=== PATIENT | female | born 1980 | race Caucasian/White ===

== ENCOUNTER 2019-07-08 10:32 | Outpatient (CLI) | payer OTHER, SELFPAY ==
--- NOTE | 2019-07-08 10:36 | MM_ITS ---
WS: [id number] BILATERAL DIGITAL SCREENING MAMMOGRAPHY WITH CAD CLINICAL INFORMATION: SCREENING HISTORY: Screening mammogram. Bilateral breast soreness COMPARISON: None. TECHNIQUE: Bilateral CC and MLO views. FINDINGS: Scattered fibroglandular densities bilaterally. No suspicious focal mass, asymmetry, calcifications, or architectural distortion. No evidence of malignancy. MM/[id number] IMPRESSION: BI-RADS: 1-Negative FOLLOW UP: 1 Year Follow-up Recommend return to annual screening mammography.
== END 2019-07-08 10:33 | disposition home or self-care (01) ==
LOC: RADSHAW 10:33
PROVIDERS: Family Provider Internal Medicine; PCP Physician Assistant; Visit Provider Physician Assistant
DX: Z12.31 Encounter for screening mammogram for malignant neoplasm of breast (principal)
CPT/HCPCS: 77067

== ENCOUNTER → 2019-12-01 08:16 | Outpatient (BNVA) | payer OTHER, SELFPAY | PROVIDERS: Family Provider Internal Medicine; PCP Physician Assistant; Visit Provider Counselor Mental Health | DX: F41.1 Generalized anxiety disorder (principal); F33.1 Major depressive disorder, recurrent, moderate; F43.12 Post-traumatic stress disorder, chronic | CPT/HCPCS: 90791 ==

== ENCOUNTER → 2019-12-08 08:30 | Outpatient (BNVA) | payer OTHER, SELFPAY | PROVIDERS: Family Provider Internal Medicine; PCP Physician Assistant; Visit Provider Psychiatry & Neurology Psychiatry | DX: F41.9 Anxiety disorder, unspecified (principal); F41.0 Panic disorder [episodic paroxysmal anxiety]; F06.30 Mood disorder due to known physiological condition, unspecified; F43.12 Post-traumatic stress disorder, chronic; F40.10 Social phobia, unspecified | CPT/HCPCS: 99205 ==

== ENCOUNTER → 2019-12-22 07:45 | Outpatient (BNVA) | payer OTHER, SELFPAY | PROVIDERS: Family Provider Internal Medicine; PCP Physician Assistant; Visit Provider Nurse Practitioner | DX: F41.1 Generalized anxiety disorder (principal); F33.2 Major depressive disorder, recurrent severe without psychotic features | CPT/HCPCS: 99204 ==

== ENCOUNTER → 2020-01-03 07:46 | Outpatient (BNVA) | payer OTHER, SELFPAY | PROVIDERS: Family Provider Internal Medicine; PCP Physician Assistant; Visit Provider Nurse Practitioner | DX: F33.2 Major depressive disorder, recurrent severe without psychotic features (principal); F41.1 Generalized anxiety disorder | CPT/HCPCS: 99214 ==

== ENCOUNTER → 2020-02-11 07:55 | Outpatient (BNVA) | payer OTHER, SELFPAY | PROVIDERS: Family Provider Internal Medicine; PCP Physician Assistant; Visit Provider Nurse Practitioner | DX: F33.2 Major depressive disorder, recurrent severe without psychotic features (principal); F41.1 Generalized anxiety disorder | CPT/HCPCS: 99214 ==

== ENCOUNTER → 2020-03-07 07:57 | Outpatient (BNVA) | payer OTHER, SELFPAY | PROVIDERS: Family Provider Internal Medicine; PCP Physician Assistant; Visit Provider Nurse Practitioner | DX: F33.2 Major depressive disorder, recurrent severe without psychotic features (principal); F41.1 Generalized anxiety disorder | CPT/HCPCS: 99213 ==

== ENCOUNTER → 2020-04-04 07:34 | Outpatient (BNVA) | payer OTHER, SELFPAY | PROVIDERS: Family Provider Internal Medicine; PCP Physician Assistant; Visit Provider Nurse Practitioner | DX: F33.2 Major depressive disorder, recurrent severe without psychotic features (principal); F41.1 Generalized anxiety disorder | CPT/HCPCS: 99214 ==

== ENCOUNTER → 2020-05-01 07:48 | Outpatient (BNVA) | payer OTHER, SELFPAY | PROVIDERS: Family Provider Internal Medicine; PCP Physician Assistant; Visit Provider Nurse Practitioner | DX: F33.2 Major depressive disorder, recurrent severe without psychotic features (principal); F41.1 Generalized anxiety disorder | CPT/HCPCS: 99214 ==

== ENCOUNTER → 2020-05-29 07:42 | Outpatient (BNVA) | payer OTHER, SELFPAY | PROVIDERS: Family Provider Internal Medicine; PCP Physician Assistant; Visit Provider Nurse Practitioner | DX: F33.2 Major depressive disorder, recurrent severe without psychotic features (principal); F41.1 Generalized anxiety disorder | CPT/HCPCS: 99214 ==

== ENCOUNTER → 2020-07-13 08:45 | Outpatient (BNVA) | payer OTHER, SELFPAY | PROVIDERS: Family Provider Internal Medicine; PCP Physician Assistant; Visit Provider Nurse Practitioner | DX: F33.2 Major depressive disorder, recurrent severe without psychotic features (principal); F41.1 Generalized anxiety disorder | CPT/HCPCS: 99214 ==

== ENCOUNTER 2020-08-05 04:24 | Emergency (ER) | payer OTHER, SELFPAY ==
[2020-08-05 04:34] VITALS: BP 158/121; PULSE 96; RESP 16; TEMP 36.6; O2SAT 96; BMI 41.1
--- NOTE | 2020-08-05 04:36 | CTR_ITS ---
PROCEDURE INFORMATION: Exam: CT Abdomen And Pelvis With Contrast Exam date and time: 08/05/2020 4:38 AM Age: 40 years old Clinical indication: Abdominal pain; Localized; Right lower quadrant (rlq); Prior surgery; Surgery type: Gb; Patient HX: Rlq pain with nausea; Additional info: Abd pain TECHNIQUE: Imaging protocol: Computed tomography of the abdomen and pelvis with contrast. Radiation optimization: All CT scans at this facility use at least one of these dose optimization techniques: automated exposure control; mA and/or kV adjustment per patient size (includes targeted exams where dose is matched to clinical indication); or iterative reconstruction. Contrast material: OMNI 300; Contrast volume: 95 ml; Contrast route: INTRAVENOUS (IV); COMPARISON: CT abdomen pelvis w con* [id number] 09/09/2013 11:06 PM RADIATION DOSE METRICS: Total DLP (mGy-cm): 1662.23 FINDINGS: Liver: Normal. No mass. Gallbladder and bile ducts: The gallbladder is surgically absent. No ductal dilation. Pancreas: Normal. No ductal dilation. Spleen: Normal. No splenomegaly. Adrenal glands: Normal. No mass. Kidneys and ureters: Normal. No hydronephrosis. Stomach and bowel: Mild ileus of the small bowel loops is seen with fluid content. No obstruction. No mucosal thickening. Appendix: No evidence of appendicitis. Intraperitoneal space: Unremarkable. No free air. No significant fluid collection. Vasculature: Unremarkable. No abdominal aortic aneurysm. Lymph nodes: Unremarkable. No enlarged lymph nodes. Urinary bladder: Unremarkable as visualized. Reproductive: Unremarkable as visualized. Bones/joints: Degenerative changes are present. No acute fracture. Soft tissues: Unremarkable. CT/CT abdomen pelvis w con* [id number] IMPRESSION: Mild ileus of the small bowel loops is seen with fluid content usually seen with diarrheal conditions. Similar findings are seen on the previous exam. The gallbladder is surgically absent. Radiation Dose CTDIVOL = (mGy): DLP = 1662.23 (mGy-cm)
--- NOTE | 2020-08-05 04:36 | ED_ITS ---
Documented by User: Jenaro Morales MD 08/05/20 04:38 HPI - Abdominal Pain General: Chief Complaint: Abdominal Pain Stated Complaint: lower abd pain Time Seen by Provider: 08/05/20 04:25 Source: patient Mode of arrival: ambulatory Limitations: no limitations History of Present Illness: HPI narrative: 40-year-old female states of last 2 days she has been having suprapubic along with right lower quadrant pain. She states that tonight it got much worse is worse with any movement. States that sharp in nature and rates it a 7 out of 10. She had some nausea. Patient denies any vomiting or diarrhea. She denies any fevers. MD elicited complaint: abdominal pain Associated Symptoms: Reports nausea; Denies chills, diarrhea, dysuria, fever(s) and vomiting Review of Systems Const: Denies: fever(s), chills, body aches or change in appetite Eyes: Denies: blurry vision or eye discomfort ENMT: Denies: throat pain or dental pain Card: Denies: chest pain Resp: Denies: dyspnea GI: Reports: abdominal pain and nausea; Denies: vomiting or diarrhea : Denies: dysuria Musc: Denies: neck pain or back pain Skin/Breast: Denies: rash Neuro: Denies: headache(s) Psych: Denies: depression Ronald/Lymph: Denies: easy bruising All/Imm: Denies: urticaria PFSH ED PFSH: Medical History Depressive disorder Generalized anxiety disorder Major depressive disorder, recurrent severe without psychotic features Family History Other Diabetes Hypertension Obesity Social History Smoking and tobacco status: never smoked Second hand smoke exposure: No Alcohol intake: never Adopted: No Caregiver/support person: No Lives independently: No Household members: children Current occupational status: employed History of recent travel: No Sexually active: Yes Current gender identity: Female Physical Exam Const: COMMON NORMALS: no acute distress, patient oriented x3 and healthy appearing HENMT: COMMON NORMALS: normocephalic and atraumatic HEAD & SCALP: normocephalic and atraumatic Eye: COMMON NORMALS: Equal, round and reactive pupils present and EOMs intact bilaterally PUPIL: Yes Equal, round and reactive pupils present Neck/C-Spine: COMMON NORMALS: full ROM and supple Chest: COMMONS NORMALS: normal inspection of the chest and normal palpation of entire chest wall Resp: COMMON NORMALS: normal respiratory effort, No retractions, No use of accessory muscles and clear to auscultation bilaterally AUSCULTATION: clear to auscultation bilaterally Cardio: COMMON NORMALS: regular rate, regular rhythm and No murmurs present (Cardio) RATE: regular rate RHYTHM: regular rhythm GI: COMMON NORMALS: Normal to inspection, nondistended, normoactive bowel sounds present, Soft to palpation and no masses PALPATION: Yes Soft to palpation and Yes Tenderness to palpation present (GI) (rlq tender and suprapubic tender) Extremity: COMMON NORMALS: normal to inspection and full ROM Neuro: COMMON NORMALS: patient oriented x3, moves all extremities and no focal motor deficits Psych: COMMON NORMALS: mental status grossly normal, Normal thought process present and cooperative THOUGHT PROCESS: Normal thought process present Skin: COMMON NORMALS: no rashes or lesions noted and no wounds GENERAL SKIN EXAM: no rashes or lesions noted Course Vital Signs: Vital signs: Vital Signs Temperature 97.8 F 08/05/20 04:34 Pulse Rate 99 08/05/20 05:54 Respiratory Rate 18 08/05/20 05:54 Blood Pressure 133/93 08/05/20 05:54 Pulse Oximetry 100 08/05/20 05:54 MDM - Abdominal Pain Lab Data: Labs: Lab Results 08/05/20 08/05/20 08/05/20 Range/Units 05:03 05:03 05:40 WBC 7.0 (4.0-10.0) 10^3/ uL RBC 4.35 (4.1-5.3) 10^6/u L Hgb 12.2 (11.5-15.3) g/dL Hct 37.5 (37.0-47.0) % MCV 86.2 (81-99) fL MCH 28.0 (28.0-34.0) pg MCHC 32.5 (30.0-36.0) g/dL RDW 14.3 (12.1-15.1) % Plt Count 255 (130-400) 10^3/c mm MPV 10.1 (7.4-10.4) fL Neut % (Auto) 45.9 % Lymph % (Auto) 40.0 % [place] % (Auto) 9.5 % Eos % (Auto) 3.5 % Baso % (Auto) 1.0 % Neut # (Auto) 3.19 (1.8-7.7) 10^3/u L Lymph # (Auto) 2.8 (0.8-4.8) 10^3/u L [place] # (Auto) 0.7 (0.2-0.9) 10^3/u L Eos # (Auto) 0.2 (0.0-0.8) 10^3/u L Baso # (Auto) 0.1 (0.0-0.1) 10^3/u L Nucleated RBC % (a uto) 0 % Nucleated RBCs # 0.0 /100WBC Sodium 138 (136-145) mmol/L Potassium 4.3 (3.5-5.1) mmol/L Chloride 103 (98-107) mmol/L Carbon Dioxide 27 (22-29) mmol/L Anion Gap 12.3 (5-19) BUN 16 (6-20) mg/dL Creatinine 0.6 (0.5-0.9) mg/dL GFR Calculation 110.2 (90-130) mL/min Glucose 86 (65-115) mg/dL Calculated Osmolal ity 286 (285-295) mOsm/k g Calcium 9.1 (8.5-10.5) mg/dL Total Bilirubin 0.2 (0.15-1.2) mg/dL AST 50 H (0-32) U/L ALT 54 H (0-33) U/L Alkaline Phosphata se 74 (35-105) IU/L Total Protein 7.3 (6.6-8.7) g/dL Albumin 4.2 (3.5-5.2) g/dL Globulin 3.1 (1.3-4.6) g/dL Lipase 36 (13-60) U/L Urine Color Yellow (Yellow) Urine Appearance Clear (CLEAR) Urine pH 5 (5-7) Ur Specific Gravit y 1.020 (1.005-1.030) Urine Protein Neg (Negative) Urine Glucose (UA) Norm (Normal) Urine Ketones Negative (Negative) Urine Blood Neg (Negative) Urine Nitrate Negative (Negative) Urine Bilirubin Neg (Negative) Urine Urobilinogen Norm (Negative) mg/dL Ur Leukocyte [place] ase Negative (Negative) Discharge Plan Discharge Clinical Impression: Nonspecific abdominal pain, Gastroenteritis Condition: Stable Prescriptions: New dicyclomine 20 mg tablet 20 mg PO TID Qty: 20 RF: 0 metronidazole [Flagyl] 500 mg tablet 500 mg PO BID 7 Days Qty: 14 RF: 0 No Action aripiprazole [Abilify] 2 mg tablet 2 mg PO DAILY Qty: 30 RF: 1 cyanocobalamin (vitamin B-12) 1,000 mcg/mL kit 1,000 mcg IM .weekly Qty: 4 RF: 2 folic acid 1 mg tablet 1 mg PO DAILY Qty: 30 RF: 2 magnesium gluconate 30 mg (550 mg) tablet 30 mg PO BID Qty: 60 RF: 2 zinc 50 mg tablet 50 mg PO DAILY Qty: 30 RF: 2 propranolol 20 mg tablet 20 mg PO TID Qty: 90 RF: 2 duloxetine [Cymbalta] 60 mg capsule,delayed release(DR/EC) 120 mg PO DAILY Qty: 60 RF: 2 Referrals: Tiffani Dawson PA [Primary Care Provider] - Discharge Diet: Advance as tolerated Discharge Activity: Resume usual activity Patient Instructions: Abdominal Pain (ED) Activity Restrictions/Additional Instructions: Encourage p.o. fluids. Advance advance diet as tolerated. If diarrhea does develop take only Pepto-Bismol [id number]. Take medications as instructed and follow-up with PCP in 2 to 3 days Coding Level of Care Code ED Water Mangle Tender for Chg Fwd Exam Comprehensive Documented by User: Mike Celaya MD 08/05/20 06:47 HPI - Abdominal Pain General: Chief Complaint: Abdominal Pain Stated Complaint: lower abd pain Time Seen by Provider: 08/05/20 04:25 PFSH ED PFSH: Medical History Depressive disorder Generalized anxiety disorder Major depressive disorder, recurrent severe without psychotic features Family History Other Diabetes Hypertension Obesity Social History Smoking and tobacco status: never smoked Second hand smoke exposure: No Alcohol intake: never Adopted: No Caregiver/support person: No Lives independently: No Household members: children Current occupational status: employed History of recent travel: No Sexually active: Yes Current gender identity: Female Course ED course: Patient is resting comfortably. No specific complaints at this time. Reevaluation(s): Reevaluation #1: Patient's labs are unremarkable. Patient CT scan shows mild ileus of the small bowel loops is seen with fluid content usually seen with mild diarrheal conditions had a similar finding on previous scan. I did discuss at length with patient about concerns. Patient will be placed on Flagyl. Also will be prescribed Bentyl. Patient instructed to have clear liquids and advance diet as tolerated. Follow-up with PCP in 2 to 3 days. Patient states understanding Time: 06:41 Vital Signs: Vital signs: Vital Signs Temperature 97.8 F 08/05/20 04:34 Pulse Rate 99 08/05/20 05:54 Respiratory Rate 18 08/05/20 05:54 Blood Pressure 133/93 08/05/20 05:54 Pulse Oximetry 100 08/05/20 05:54 MDM - Abdominal Pain Lab Data: Labs: Lab Results 08/05/20 08/05/20 08/05/20 Range/Units 05:03 05:03 05:40 WBC 7.0 (4.0-10.0) 10^3/ uL RBC 4.35 (4.1-5.3) 10^6/u L Hgb 12.2 (11.5-15.3) g/dL Hct 37.5 (37.0-47.0) % MCV 86.2 (81-99) fL MCH 28.0 (28.0-34.0) pg MCHC 32.5 (30.0-36.0) g/dL RDW 14.3 (12.1-15.1) % Plt Count 255 (130-400) 10^3/c mm MPV 10.1 (7.4-10.4) fL Neut % (Auto) 45.9 % Lymph % (Auto) 40.0 % [place] % (Auto) 9.5 % Eos % (Auto) 3.5 % Baso % (Auto) 1.0 % Neut # (Auto) 3.19 (1.8-7.7) 10^3/u L Lymph # (Auto) 2.8 (0.8-4.8) 10^3/u L [place] # (Auto) 0.7 (0.2-0.9) 10^3/u L Eos # (Auto) 0.2 (0.0-0.8) 10^3/u L Baso # (Auto) 0.1 (0.0-0.1) 10^3/u L Nucleated RBC % (a uto) 0 % Nucleated RBCs # 0.0 /100WBC Sodium 138 (136-145) mmol/L Potassium 4.3 (3.5-5.1) mmol/L Chloride 103 (98-107) mmol/L Carbon Dioxide 27 (22-29) mmol/L Anion Gap 12.3 (5-19) BUN 16 (6-20) mg/dL Creatinine 0.6 (0.5-0.9) mg/dL GFR Calculation 110.2 (90-130) mL/min Glucose 86 (65-115) mg/dL Calculated Osmolal ity 286 (285-295) mOsm/k g Calcium 9.1 (8.5-10.5) mg/dL Total Bilirubin 0.2 (0.15-1.2) mg/dL AST 50 H (0-32) U/L ALT 54 H (0-33) U/L Alkaline Phosphata se 74 (35-105) IU/L Total Protein 7.3 (6.6-8.7) g/dL Albumin 4.2 (3.5-5.2) g/dL Globulin 3.1 (1.3-4.6) g/dL Lipase 36 (13-60) U/L Urine Color Yellow (Yellow) Urine Appearance Clear (CLEAR) Urine pH 5 (5-7) Ur Specific Gravit y 1.020 (1.005-1.030) Urine Protein Neg (Negative) Urine Glucose (UA) Norm (Normal) Urine Ketones Negative (Negative) Urine Blood Neg (Negative) Urine Nitrate Negative (Negative) Urine Bilirubin Neg (Negative) Urine Urobilinogen Norm (Negative) mg/dL Ur Leukocyte [place] ase Negative (Negative) Critical Care Time Critical Care Time: Critical Care Time: No Discharge Plan Discharge Clinical Impression: Nonspecific abdominal pain, Gastroenteritis Condition: Stable Prescriptions: New dicyclomine 20 mg tablet 20 mg PO TID Qty: 20 RF: 0 metronidazole [Flagyl] 500 mg tablet 500 mg PO BID 7 Days Qty: 14 RF: 0 No Action aripiprazole [Abilify] 2 mg tablet 2 mg PO DAILY Qty: 30 RF: 1 cyanocobalamin (vitamin B-12) 1,000 mcg/mL kit 1,000 mcg IM .weekly Qty: 4 RF: 2 folic acid 1 mg tablet 1 mg PO DAILY Qty: 30 RF: 2 magnesium gluconate 30 mg (550 mg) tablet 30 mg PO BID Qty: 60 RF: 2 zinc 50 mg tablet 50 mg PO DAILY Qty: 30 RF: 2 propranolol 20 mg tablet 20 mg PO TID Qty: 90 RF: 2 duloxetine [Cymbalta] 60 mg capsule,delayed release(DR/EC) 120 mg PO DAILY Qty: 60 RF: 2 Referrals: Tiffani Dawson PA [Primary Care Provider] - Discharge Diet: Advance as tolerated Discharge Activity: Resume usual activity Patient Instructions: Abdominal Pain (ED) Activity Restrictions/Additional Instructions: Encourage p.o. fluids. Advance advance diet as tolerated. If diarrhea does develop take only Pepto-Bismol [id number]. Take medications as instructed and follow-up with PCP in 2 to 3 days Coding Level of Care Code ED Water Mangle Tender for Chg Fwd Exam Comprehensive
[2020-08-05] MEDS: ondansetron 2 mg/ML SDV 2 mL 4 MG IVP (05:09)
[2020-08-05 05:11] LABS: Basophils # 0.1 10^3/uL (0.0-0.1); Eosinophils # 0.2 10^3/uL (0.0-0.8); Eosinophils % 3.5 %; Hematocrit 37.5 % (37.0-47.0); Hemoglobin 12.2 g/dL (11.5-15.3); Lymphocytes # 2.8 10^3/uL (0.8-4.8); Mean Corpuscular HGB Conc 32.5 g/dL (30.0-36.0); Mean Corpuscular Volume 86.2 fL (81-99); Mean Platelet Volume 10.1 fL (7.4-10.4); Monocytes # 0.7 10^3/uL (0.2-0.9); Monocytes % 9.5 %; Neutrophils # 3.19 10^3/uL (1.8-7.7); Neutrophils % 45.9 %; Nucleated Red Blood Cells % 0 %; Platelet Count 255 10^3/cmm (130-400); Red Blood Count 4.35 10^6/uL (4.1-5.3); Red Cell Distribution Width 14.3 % (12.1-15.1)
[2020-08-05 05:13] VITALS: RESP 16; O2SAT 100
[2020-08-05] MEDS: morphine 4 mg/mL SDV 1 mL IVP (05:13)
[2020-08-05 05:21] VITALS: BP 127/88; PULSE 95; RESP 16; O2SAT 99
[2020-08-05] MEDS: iohexol 300 mg/mL 100 mL Btl IV (05:31)
[2020-08-05 05:35] LABS: Alanine Aminotransferase 54 U/L (0-33); Albumin Level 4.2 g/dL (3.5-5.2); Alkaline Phosphatase 74 IU/L (35-105); Anion Gap 12.3 (5-19); Aspartate Amino Transferase 50 U/L (0-32); Blood Urea Nitrogen 16 mg/dL (6-20); Calcium 9.1 mg/dL (8.5-10.5); Carbon Dioxide 27 mmol/L (22-29); Chloride 103 mmol/L (98-107); Creatinine Clr Calc Pharmacy 148.7523; Globulin 3.1 g/dL (1.3-4.6); Glomerular Filtration Rate 110.2 mL/min (90-130); Glucose 86 mg/dL (65-115); Lipase 36 U/L (13-60); Osmolality Calculated 286 mOsm/kg (285-295); Potassium 4.3 mmol/L (3.5-5.1); Sodium 138 mmol/L (136-145); Total Bilirubin 0.2 mg/dL (0.15-1.2); Total Protein 7.3 g/dL (6.6-8.7)
[2020-08-05] MEDS: sodium chloride 0.9% 1,000 ML 999 ML IV (05:44)
[2020-08-05 05:49] VITALS: RESP 18; O2SAT 99
[2020-08-05] MEDS: HYDROmorphone 1 mg/mL INJ 1 mL IVP (05:49)
[2020-08-05 05:54] VITALS: BP 133/93; PULSE 99; RESP 18; O2SAT 100
[2020-08-05 05:57] LABS: Add Urine Microscopic? NO
[2020-08-05 06:02] LABS: Bilirubin Urine Neg (Negative); Blood Urine Neg (Negative); Glucose Urine UA Norm (Normal); Ketones Urine Negative (Negative); Leukocyte Esterase Urine Negative (Negative); Nitrate Urine Negative (Negative); Protein Urine Neg (Negative); Urine Appearance Clear (CLEAR); Urine Color Yellow (Yellow); Urobilinogen Urine Norm (Negative); pH Urine 5 (5-7)
[2020-08-05 07:14] VITALS: BP 141/113; PULSE 97; RESP 20; O2SAT 99
== END 2020-08-05 07:18 ==
PROVIDERS: Emergency Provider Emergency Medicine; PCP Physician Assistant
DX: K52.9 Noninfective gastroenteritis and colitis, unspecified (principal)
CPT/HCPCS: 74177; 80053; 81003; 83690; 85025; 96361; 96374; 96375; 99283; J1170; J2270; J2405; J7030; Q9967

== ENCOUNTER → 2020-08-18 07:48 | Outpatient (BNVA) | payer OTHER, SELFPAY | PROVIDERS: PCP Physician Assistant; Visit Provider Nurse Practitioner | DX: F33.2 Major depressive disorder, recurrent severe without psychotic features (principal); F41.1 Generalized anxiety disorder | CPT/HCPCS: 99214 ==

== ENCOUNTER → 2020-09-20 07:28 | Outpatient (BNVA) | payer OTHER, SELFPAY | PROVIDERS: PCP Physician Assistant; Visit Provider Nurse Practitioner | DX: F33.2 Major depressive disorder, recurrent severe without psychotic features (principal); F41.1 Generalized anxiety disorder | CPT/HCPCS: 99214 ==

== ENCOUNTER 2020-10-10 10:34 | Outpatient (CLI) | payer OTHER, SELFPAY ==
--- NOTE | 2020-10-10 10:46 | MM_ITS ---
WS: [id number] SCREENING DIGITAL MAMMOGRAM WITH CAD HISTORY: SCREENING COMPARISON: 07/08/2019 Bilateral CC and MLO views submitted. Computer aided detection analyzed. Breast composition: There are scattered areas of fibroglandular density. No suspicious masses, microc alcifications or architectural distortion. MM/[id number] IMPRESSION: BI-RADS: 1-Negative FOLLOW UP: 1 Year Follow-up
== END 2020-10-10 10:35 | disposition home or self-care (01) ==
LOC: RADSHAW 10:40
PROVIDERS: PCP Physician Assistant; Visit Provider Physician Assistant
DX: Z12.31 Encounter for screening mammogram for malignant neoplasm of breast (principal)
CPT/HCPCS: 77067

== ENCOUNTER 2021-02-03 20:26 | Emergency (ER) | payer OTHER, SELFPAY ==
[2021-02-03] VITALS (8 sets, daily range): BP systolic 125–147; BP diastolic 81–104; PULSE 83–95; RESP 16–25; TEMP 36.8; O2SAT 96–100; BMI 45.6
--- NOTE | 2021-02-03 20:46 | XRR_ITS ---
PROCEDURE INFORMATION: Exam: XR Chest Exam date and time: 02/03/2021 8:46 PM Age: 41 years old Clinical indication: Chest pressure; Patient HX: Chest pain with cough and dyspnea; Additional info: Cp TECHNIQUE: Imaging protocol: XR of the chest. Views: 1 view. COMPARISON: CT abdomen pelvis w con* [id number] 08/05/2020 5:43 AM FINDINGS: Lungs: Unremarkable. No consolidation. Pleural spaces: Unremarkable. No pleural effusion. No pneumothorax. Heart/Mediastinum: Unremarkable. No cardiomegaly. Bones/joints: Unremarkable. XR/XR chest 1V portable [id number] IMPRESSION: No acute findings.
--- NOTE | 2021-02-03 20:46 | ECG_ITS ---
[facility] Test Date: 2021-02-03 Pat Name: Fransisco Valle Department: Room: Gender: Female [employer] Buffer: : 1980 Requested By: Raulito French Order Number: [id number] Lucy MD: Theo Burnham M.D. Measurements Intervals T[place] Rate: 85 P: 7 MA: 126 QRS: 51 QRSD: 84 T: 46 QT: 356 QTc: 424 Interpretive Statements SINUS RHYTHM No previous ECG available for comparison Electronically Signed On 02-04-2021 16:29:50 CDT by Theo Burnham M.D. [email or web address] to Have Yousouthwest [facility] medical centerSpeedyboyfayette county memorial [email or web address].[email or web address]/[id number]
--- NOTE | 2021-02-03 20:48 | ED_ITS ---
HPI - Chest Pain General: Chief Complaint: Chest Pain Stated Complaint: CHEST PAIN Time Seen by Provider: 02/03/21 20:37 History of Present Illness: HPI narrative: 41-year-old female presenting with chest discomfort. She says she has had a cough for over a week, with some congestion. Pain started this evening. She says that it felt like her throat began to swell as well, which is improved. She took a new cold medicine today, which she says she may have had a bad reaction to. She has been vaccinated for Covid. She does work on the Covid unit in the hospital. complaint: chest pain Onset (ago): minute(s) Timing of current episode: constant Prior episodes: No Onset: during rest Pain location: substernal Pain radiation: none Quality: heaviness Relieving factors: nothing Exacerbating factors: inspiration Context: recent illness Associated symptoms: Reports dyspnea; Deny abdominal pain, diaphoresis, fever(s), leg edema, nausea or vomiting Treatment prior to arrival: none Review of Systems 2 Const: Denies: fever(s) or diaphoresis Resp: Reports: dyspnea GI: Denies: abdominal pain, nausea or vomiting [facility] ED PFSH: Medical History Depressive disorder Generalized anxiety disorder Major depressive disorder, recurrent severe without psychotic features Family History Other Diabetes Hypertension Obesity Social History Smoking and tobacco status: never smoked Second hand smoke exposure: No Alcohol intake: never Adopted: No Caregiver/support person: No Lives independently: No Household members: children Current occupational status: employed History of recent travel: No Sexually active: Yes Current gender identity: Female Female Reproductive History: Date of last menstrual period: 01/16/21 Physical Exam Const: COMMON NORMALS: no acute distress, patient oriented x3, alert and well nourished GENERAL APPEARANCE: cooperative, well developed and anxious (mildly); not frail appearing HENMT: COMMON NORMALS: normocephalic HEAD & SCALP: normocephalic Chest: CHEST: Yes tenderness (Mild sternal) Resp: COMMON NORMALS: normal respiratory effort, No use of accessory muscles and clear to auscultation bilaterally AUSCULTATION: clear to auscultation bilaterally Cardio: COMMON NORMALS: regular rate and regular rhythm RATE: regular rate RHYTHM: regular rhythm GI: COMMON NORMALS: Normal to inspection, nondistended, normoactive bowel sounds present, Soft to palpation and non-tender PALPATION: Yes Soft to palpation Neuro: COMMON NORMALS: patient oriented x3 SENSORIUM/ORIENTATION: Yes alert Course Vital Signs: Vital signs: Vital Signs Temperature 98.2 F 02/03/21 20:30 Pulse Rate 95 02/03/21 23:03 Respiratory Rate 18 02/03/21 23:03 Blood Pressure 135/81 02/03/21 23:03 Pulse Oximetry 100 02/03/21 23:03 MDM - Chest Pain MDM Narrative: Medical decision making narrative: Troponin did not elevate. EKG is normal. White blood cell count is 11.5. Other labs are benign. Her D- dimer was negative as well. Chest x-ray is negative. She will be treated for bronchitis Lab Data: Labs: Lab Results 02/03/21 02/03/21 02/03/21 Range/Units 20:46 20:46 20:46 WBC 11.5 H (4.0-10.0) 10^3/ uL RBC 4.56 (4.1-5.3) 10^6/u L Hgb 12.4 (11.5-15.3) g/dL Hct 38.7 (37.0-47.0) % MCV 84.9 (81-99) fl MCH 27.2 L (28.0-34.0) pg MCHC 32.0 (30.0-36.0) g/dL RDW 14.7 (12.1-15.1) % Plt Count 373 (130-400) 10^3/c mm MPV 9.9 (7.4-10.4) fL Neut % (Auto) 65.6 % Lymph % (Auto) 22.7 % [place] % (Auto) 8.8 % Eos % (Auto) 2.0 % Baso % (Auto) 0.6 % Neut # (Auto) 7.52 (1.8-7.7) 10^3/u L Lymph # (Auto) 2.6 (0.8-4.8) 10^3/u L [place] # (Auto) 1.0 H (0.2-0.9) 10^3/u L Eos # (Auto) 0.2 (0.0-0.8) 10^3/u L Baso # (Auto) 0.1 (0.0-0.1) 10^3/u L Nucleated RBC % (a uto) 0 % Nucleated RBCs # 0.0 /100WBC D-Dimer 0.53 (0-0.59) ug/mIFE U Sodium 137 (136-145) mmol/L Potassium 4.3 (3.5-5.1) mmol/L Chloride 104 (98-107) mmol/L Carbon Dioxide 21 L (22-29) mmol/L Anion Gap 16.3 (5-19) BUN 17 (6-20) mg/dL Creatinine 0.6 (0.5-0.9) mg/dL GFR Calculation 109.6 (90-130) mL/min Glucose 89 (65-115) mg/dL Calculated Osmolal ity 285 (285-295) mOsm/k g Calcium 8.5 (8.5-10.5) mg/dL Total Bilirubin 0.3 (0.15-1.2) mg/dL AST 22 (0-32) U/L ALT 38 H (0-33) U/L Alkaline Phosphata se 96 (35-105) IU/L Troponin T Baselin e (0-10) ng/L Troponin T 120 Min [place] (0-10) ng/L Delta Troponin T (0-10) ABS# C-Reactive Protein 15.1 H (0.0-4.9) mg/L NT-Pro-B Natriuret Pep 12 (0-125) pg/mL Total Protein 7.0 (6.6-8.7) g/dL Albumin 4.1 (3.5-5.2) g/dL Globulin 2.9 (1.3-4.6) g/dL Procalcitonin 0.03 (0-0.5) ng/mL SARS-CoV-2 Ag (Rap id) (Negative) 02/03/21 02/03/21 02/03/21 Range/Units 20:46 20:46 22:44 WBC (4.0-10.0) 10^3/ uL RBC (4.1-5.3) 10^6/u L Hgb (11.5-15.3) g/dL Hct (37.0-47.0) % MCV (81-99) fl MCH (28.0-34.0) pg MCHC (30.0-36.0) g/dL RDW (12.1-15.1) % Plt Count (130-400) 10^3/c mm MPV (7.4-10.4) fL Neut % (Auto) % Lymph % (Auto) % [place] % (Auto) % Eos % (Auto) % Baso % (Auto) % Neut # (Auto) (1.8-7.7) 10^3/u L Lymph # (Auto) (0.8-4.8) 10^3/u L [place] # (Auto) (0.2-0.9) 10^3/u L Eos # (Auto) (0.0-0.8) 10^3/u L Baso # (Auto) (0.0-0.1) 10^3/u L Nucleated RBC % (a uto) % Nucleated RBCs # /100WBC D-Dimer (0-0.59) ug/mIFE U Sodium (136-145) mmol/L Potassium (3.5-5.1) mmol/L Chloride (98-107) mmol/L Carbon Dioxide (22-29) mmol/L Anion Gap (5-19) BUN (6-20) mg/dL Creatinine (0.5-0.9) mg/dL GFR Calculation (90-130) mL/min Glucose (65-115) mg/dL Calculated Osmolal ity (285-295) mOsm/k g Calcium (8.5-10.5) mg/dL Total Bilirubin (0.15-1.2) mg/dL AST (0-32) U/L ALT (0-33) U/L Alkaline Phosphata se (35-105) IU/L Troponin T Baselin e 6 (0-10) ng/L Troponin T 120 Min [place] 6.00 (0-10) ng/L Delta Troponin T 0 (0-10) ABS# C-Reactive Protein (0.0-4.9) mg/L NT-Pro-B Natriuret Pep (0-125) pg/mL Total Protein (6.6-8.7) g/dL Albumin (3.5-5.2) g/dL Globulin (1.3-4.6) g/dL Procalcitonin (0-0.5) ng/mL SARS-CoV-2 Ag (Rap id) Negative (Negative) Discharge Plan Discharge Patient Disposition: Home Clinical Impression: Bronchitis Condition: Stable Prescriptions: New dexamethasone 6 mg tablet 6 mg PO DAILY Qty: 5 RF: 0 doxycycline hyclate 100 mg capsule 100 mg PO BID 7 Days Qty: 14 RF: 0 No Action aripiprazole [Abilify] 10 mg tablet 10 mg PO DAILY Qty: 30 RF: 2 duloxetine [Cymbalta] 60 mg capsule,delayed release(DR/EC) 120 mg PO DAILY Qty: 60 RF: 2 propranolol 20 mg tablet 20 mg PO TID Qty: 90 RF: 2 trazodone 50 mg tablet 50 mg PO .HS Qty: 60 RF: 2 clonazepam 0.5 mg tablet 0.5 mg PO DAILY PRN (Reason: anxiety) Qty: 30 RF: 1 Discharge Orders: Discharge ED (Routine); Ordered 02/03/21 Ordered By: Raulito Nevarez Referrals: Tiffani Dawson PA [Primary Care Provider] - 4-7 days Patient Instructions: Acute Bronchitis (ED) Activity Restrictions/Additional Instructions: Return for worsening chest pain despite treatment, fever greater than 100 despite treatment, worsening shortness of breath, other concerning symptoms. Coding Level of Care Code ED Termite Exterminator for Iftikhar Fwd Exam Detailed
[2021-02-03 20:55] LABS: Basophils # 0.1 10^3/uL (0.0-0.1); Basophils % 0.6 %; Eosinophils # 0.2 10^3/uL (0.0-0.8); Hematocrit 38.7 % (37.0-47.0); Hemoglobin 12.4 g/dL (11.5-15.3); Lymphocytes # 2.6 10^3/uL (0.8-4.8); Lymphocytes % 22.7 %; Mean Corpuscular Hemoglobin 27.2 pg (28.0-34.0); Mean Corpuscular Volume 84.9 fl (81-99); Mean Platelet Volume 9.9 fL (7.4-10.4); Monocytes % 8.8 %; Neutrophils # 7.52 10^3/uL (1.8-7.7); Neutrophils % 65.6 %; Nucleated Red Blood Cells % 0 %; Platelet Count 373 10^3/cmm (130-400); Red Blood Count 4.56 10^6/uL (4.1-5.3); Red Cell Distribution Width 14.7 % (12.1-15.1); White Blood Count 11.5 10^3/uL (4.0-10.0)
[2021-02-03] MEDS: morphine 4 mg/mL SDV 1 mL IVP (20:56)
[2021-02-03] MEDS: ondansetron 2 mg/ML SDV 2 mL 4 MG IVP (20:56)
[2021-02-03 21:23] LABS: Troponin(5th) Baseline 6 ng/L (0-10)
[2021-02-03 21:25] LABS: NT Pro B Type Natriuretic Pept 12 pg/mL (0-125); Procalcitonin 0.03 ng/mL (0-0.5)
[2021-02-03 21:30] LABS: SARS Covid-2 Antigen Negative (Negative)
[2021-02-03 21:35] LABS: D Dimer 0.53 ug/mIFEU (0-0.59)
[2021-02-03 21:36] LABS: Alanine Aminotransferase 38 U/L (0-33); Albumin Level 4.1 g/dL (3.5-5.2); Alkaline Phosphatase 96 IU/L (35-105); Anion Gap 16.3 (5-19); Aspartate Amino Transferase 22 U/L (0-32); Blood Urea Nitrogen 17 mg/dL (6-20); C Reactive Protein 15.1 mg/L (0.0-4.9); Calcium 8.5 mg/dL (8.5-10.5); Carbon Dioxide 21 mmol/L (22-29); Chloride 104 mmol/L (98-107); Globulin 2.9 g/dL (1.3-4.6); Glomerular Filtration Rate 109.6 mL/min (90-130); Glucose 89 mg/dL (65-115); Osmolality Calculated 285 mOsm/kg (285-295); Potassium 4.3 mmol/L (3.5-5.1); Sodium 137 mmol/L (136-145); Total Bilirubin 0.3 mg/dL (0.15-1.2)
--- NOTE | 2021-02-03 22:46 | ECG_ITS ---
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 Measurements Intervals [place] Rate: 89 P: 61 SD: 154 QRS: 50 QRSD: 80 T: 48 QT: 354 QTc: 431 Interpretive Statements SINUS RHYTHM Compared to ECG 02/03/2021 20:35:39 No significant changes Electronically Signed On 02-04-2021 16:34:10 CDT by Theo Burnham M.D. [id number]
[2021-02-03 23:35] LABS: Troponin 5 2HR Delta 0 ABS# (0-10)
[2021-02-03] MEDS: ketorolac 30 mg/mL INJ 15 MG IVP (23:56)
[2021-02-03] MEDS: predniSONE 20 mg Tablet 40 MG PO (23:57)
[2021-02-03] MEDS: doxycycline 100 mg Tablet PO (23:57)
== END 2021-02-04 00:04 | disposition home or self-care (01) ==
PROVIDERS: Emergency Provider Emergency Medicine; PCP Physician Assistant
DX: J40 Bronchitis, not specified as acute or chronic (principal); Z20.822 Contact with and (suspected) exposure to COVID-19
CPT/HCPCS: 71045; 80053; 83880; 84145; 84484; 85025; 85378; 86140; 87426; 93005; 96374; 96375; 99284; J1885; J2270; J2405; J7512

== ENCOUNTER → 2021-04-10 09:19 | Outpatient (BNVA) | payer OTHER, SELFPAY | PROVIDERS: PCP Physician Assistant; Visit Provider Nurse Practitioner | DX: F33.2 Major depressive disorder, recurrent severe without psychotic features (principal) | CPT/HCPCS: 84439; 84443 ==

== ENCOUNTER 2021-09-06 23:04 | Emergency (ER) | payer OTHER, SELFPAY ==
[2021-09-06 23:16] VITALS: BP 158/89; PULSE 74; RESP 26; TEMP 35.8; O2SAT 98; BMI 41.5
--- NOTE | 2021-09-06 23:18 | ECG_ITS ---
[facility] Test Date: 2021-09-06 Pat Name: Fransisco Sharif Department: Room: Gender: Female Gate Keeper: : 1980 Requested By: Tatyana Rodrigez Order Number: [id number] Lucy MD: Pritesh Rey M.D. Measurements Intervals [place] Rate: 79 P: 47 IA: 120 QRS: 64 QRSD: 94 T: 55 QT: 411 QTc: 472 Interpretive Statements SINUS RHYTHM No previous ECG available for comparison Electronically Signed On 09-07-2021 20:09:37 CDT by Pritesh Rey M.D. [id number]
--- NOTE | 2021-09-06 23:18 | XRR_ITS ---
PROCEDURE INFORMATION: Exam: XR Chest Exam date and time: 09/06/2021 10:36 PM Age: 41 years old Clinical indication: Chest pressure; Patient HX: C/O chest pain with hypertension. PT diaphoretic. TECHNIQUE: Imaging protocol: XR of the chest. Views: 1 view. COMPARISON: CR XR chest 1V portable [id number] 02/03/2021 9:39 PM FINDINGS: Lungs: There is mild indistinctness of the pulmonary vasculature and some haziness seen in the lower hemithoraces, findings could represent mild pulmonary edema. Pleural spaces: Unremarkable. No pleural effusion. No pneumothorax. Heart/Mediastinum: Unremarkable. No cardiomegaly. Bones/joints: Unremarkable. XR/XR chest 1V portable [id number] IMPRESSION: Mild indistinctness of the pulmonary vasculature and hazy opacities in the lower hemithoraces could represent mild pulmonary edema.
--- NOTE | 2021-09-06 23:19 | ED_ITS ---
Documented by User: MICHAELLE Jenkins 09/07/21 02:41 HPI - Chest Pain General: Chief Complaint: Chest Pain Stated Complaint: cp Time Seen by Provider: 09/06/21 23:15 Source: patient Mode of arrival: wheelchair Limitations: no limitations History of Present Illness: Patient is a 41-year-old female who presents to ED today with an episode of chest pain. 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 She states she walked away and felt dizzy and lightheaded and began feeling diaphoretic. Patient states she normally sweats secondary to her Lexapro. Patient states she never had any shortness of breath or difficulty breathing. She has no cardiac history. Patient tells me currently she feels much better. She still feels a little shaky . She is not having any chest discomfort currently. Upon speaking to patient extensively she does tell me she took a energy/caffeine pill approximately 2 hours before symptoms began. MD complaint: chest pain and chest heaviness Onset (ago): hour(s) Timing of current episode: now resolved Prior episodes: No Onset: during exertion Pain location: substernal Pain radiation: none Quality: heaviness Relieving factors: rest Associated symptoms: Reports diaphoresis; Deny abdominal pain, dyspnea, fever(s), nausea, palpitations, syncope or vomiting Treatment prior to arrival: none Risk Factors: Coronary artery disease risk factors: none Thoracic aortic dissection risk factors: none Related Data: On Oral Contraceptives: No Review of Systems Const: Reports: diaphoresis; Denies: fever(s), chills, body aches, fatigue or malaise Card: Reports: chest pain, lightheadedness (resolved now) and pre-syncope; Denies: palpitations, irregular heart rhythm, edema, swelling of feet/ankles, syncope, dyspnea on exertion, orthopnea, leg pain with exertion or acrocyanosis Resp: Denies: dyspnea, productive cough, wheezing, hemoptysis or chest congestion GI: Denies: abdominal pain, nausea, vomiting or diarrhea Musc: Denies: neck pain, back pain, extremity pain or joint pain Skin/Breast: Denies: rash Neuro: Denies: headache(s), numbness in extremities, weakness in extremities, sensory changes, difficulty walking, confusion, Slurred speech present or seizure-like activity PFS ED PFSH: Medical History Depressive disorder Generalized anxiety disorder Major depressive disorder, recurrent severe without psychotic features Psychiatric care Family History Other Diabetes Hypertension Obesity Social History Smoking and tobacco status: never smoked Second hand smoke exposure: No Alcohol intake: never Adopted: No Caregiver/support person: No Lives independently: No Household members: children Current occupational status: employed History of recent travel: No Sexually active: Yes Current gender identity: Female Female Reproductive History: Date of last menstrual period: 01/16/21 Physical Exam Const: COMMON NORMALS: patient oriented x3, no limitations and alert GENERAL APPEARANCE: cooperative and anxious NUTRITIONAL APPEARANCE: obese morbidly obese ORIENTATION/CONSCIOUSNESS: Yes awake, Yes oriented to person, Yes oriented to place and Yes oriented to time HENMT: COMMON NORMALS: normocephalic and atraumatic HEAD & SCALP: normoce phalic and atraumatic Neck/C-Spine: GENERAL: Yes normal visual inspection Chest: COMMONS NORMALS: normal inspection of the chest and normal palpation of entire chest wall Resp: COMMON NORMALS: normal respiratory effort and clear to auscultation bilaterally AUSCULTATION: clear to auscultation bilaterally Cardio: COMMON NORMALS: regular rate and regular rhythm RATE: regular rate RHYTHM: regular rhythm GI: COMMON NORMALS: Normal to inspection, nondistended, normoactive bowel sounds present, Soft to palpation, non-tender and no masses PALPATION: Yes Soft to palpation Back/Pelvis: COMMON NORMALS: thoracic and lumbar spine normal to inspection, no thoracic nor lumbar tenderness and thoraco-lumbar ROM normal Extremity: COMMON NORMALS: normal to inspection, capillary refill normal, no joint enlargement, no clubbing, cyanosis or edema, no calf tenderness and no pedal edema GENERAL: Yes normal exam except as noted Neuro: NORMA COMA SCALE: document GCS findings [place] coma scale eye opening: Spontaneous [place] coma scale verbal response: Orientated [place] coma scale motor response: Obey commands [place] coma scale total score: 15 COMMON NORMALS: patient oriented x3, moves all extremities, no focal motor deficits and no sensory deficits noted SENSORIUM/ORIENTATION: Yes alert, Yes oriented to person, Yes oriented to place and Yes oriented to time Skin: COMMON NORMALS: no rashes or lesions noted NARRATIVE SKIN EXAM: slight diaphoresis noted GENERAL SKIN EXAM: no rashes or lesions noted TRAUMA: no lacerations or abrasions Course Vital Signs: Vital signs: Vital Signs Temperature 96.5 F L 09/06/21 23:16 Pulse Rate 83 09/07/21 03:03 Respiratory Rate 18 09/07/21 03:03 Blood Pressure 132/77 09/07/21 03:03 Pulse Oximetry 97 09/07/21 03:03 MDM - Chest Pain Medical Decision Making Patient has remained chest free during her entire visit. I have re-evaluated patient multiple times. On her final re-evaluation she tells me she still feels good and feels back to normal and would like to go home. I think some of patient's symptoms could be secondary to the energy/caffeine tablet that she took 2 hours prior to symptoms starting. Patient's work-up here is benign. She has a baseline troponin of 6 with a nonsignificant delta. Her initial and repeat EKGs show sinus rhythm without ischemic changes. CXR show some indistinctness that could represent mild pulmonary edema-? Patient clinically does not appear volume overloaded. At this time I recommend she follow-up with her PCP early next week for reevaluation. Strict return to ED precautions verbally given. Lab Data : 09/07/21 00:00 09/07/21 00:00 Radiology Impressions Chest X-Ray 09/06/21 23:18 IMPRESSION: Mild indistinctness of the pulmonary vasculature and hazy opacities in the lower hemithoraces could represent mild pulmonary edema. Laboratory Results WBC 9.4 10^3/uL (4.0-10.0) 09/07/21 00:00 RBC 4.82 10^6/uL (4.1-5.3) 09/07/21 00:00 Hgb 13.5 g/dL (11.5-15.3) 09/07/21 00:00 Hct 41.8 % (37.0-47.0) 09/07/21 00:00 MCV 86.7 fl (81-99) 09/07/21 00:00 MCH 28.0 pg (28.0-34.0) 09/07/21 00:00 MCHC 32.3 g/dL (30.0-36.0) 09/07/21 00:00 RDW 15.7 % (12.1-15.1) H 09/07/21 00:00 Plt Count 256 10^3/cmm (130-400) 09/07/21 00:00 MPV 11.4 fL (7.4-10.4) H 09/07/21 00:00 Neut % (Auto) 58.9 % 09/07/21 00:00 Lymph % (Auto) 28.7 % 09/07/21 00:00 [place] % (Auto) 8.9 % 09/07/21 00:00 Eos % (Auto) 2.7 % 09/07/21 00:00 Baso % (Auto) 0.6 % 09/07/21 00:00 Neut # (Auto) 5.53 10^3/uL (1.8-7.7) 09/07/21 00:00 Lymph # (Auto) 2.7 10^3/uL (0.8-4.8) 09/07/21 00:00 [place] # (Auto) 0.8 10^3/uL (0.2-0.9) 09/07/21 00:00 Eos # (Auto) 0.3 10^3/uL (0.0-0.8) 09/07/21 00:00 Baso # (Auto) 0.1 10^3/uL (0.0-0.1) 09/07/21 00:00 Nucleated RBC % (auto) 0 % 09/07/21 00:00 Nucleated RBCs # 0.0 /100WBC 09/07/21 00:00 Sodium 139 mmol/L (136-145) 09/07/21 00:00 Potassium 4.0 mmol/L (3.5-5.1) 09/07/21 00:00 Chloride 104 mmol/L (98-107) 09/07/21 00:00 Carbon Dioxide 25 mmol/L (22-29) 09/07/21 00:00 Anion Gap 14.0 (5-19) 09/07/21 00:00 BUN 15 mg/dL (6-20) 09/07/21 00:00 Creatinine 0.7 mg/dL (0.5-0.9) 09/07/21 00:00 GFR Calculation 91.8 mL/min (90-130) 09/07/21 00:00 Glucose 79 mg/dL (65-115) 09/07/21 00:00 Calculated Osmolality 288 mOsm/kg (285-295) 09/07/21 00:00 Calcium 9.9 mg/dL (8.5-10.5) 09/07/21 00:00 Total Bilirubin 0.3 mg/dL (0.15-1.2) 09/07/21 00:00 AST 35 U/L (0-32) H 09/07/21 00:00 ALT 46 U/L (0-33) H 09/07/21 00:00 Alkaline Phosphatase 80 IU/L (35-105) 09/07/21 00:00 Troponin T Baseline 6 ng/L (0-10) 09/07/21 00:00 Troponin T 120 Minute 7.48 ng/L (0-10) 09/07/21 01:57 Delta Troponin T 1.48 ABS# (0-10) 09/07/21 01:57 Total Protein 7.8 g/dL (6.6-8.7) 09/07/21 00:00 Albumin 4.7 g/dL (3.5-5.2) 09/07/21 00:00 Globulin 3.1 g/dL (1.3-4.6) 09/07/21 00:00 Discharge Plan Discharge Patient Disposition: Home Clinical Impression: Atypical chest pain Condition: Stable Prescriptions: No Action duloxetine [Cymbalta] 60 mg capsule,delayed release(DR/EC) 120 mg PO DAILY Qty: 60 1RF escitalopram oxalate [Lexapro] 20 mg tablet 20 mg PO DAILY Qty: 30 1RF propranolol 20 mg tablet 20 mg PO TID Qty: 90 1RF trazodone 50 mg tablet 50 mg PO .HS Qty: 60 1RF Rx Instructions: 1-2 tablets at bedtime as needed for sleep. clonazepam 0.5 mg tablet 0.5 mg PO DAILY PRN (Reason: anxiety) Qty: 30 1RF dexamethasone 6 mg tablet 6 mg PO DAILY Qty: 5 0RF Discharge Orders: Discharge ED (Routine); Ordered 09/07/21 Ordered By: Tatyana Rodrigez Referrals: Tiffani Dawson PA [Primary Care Provider] - Coding Level of Care Code ED Irrigation Worker for Chg Fwd Exam Comprehensive Documented by User: Cassius Rodrigez MD 09/07/21 09:18 HPI - Chest Pain General: Chief Complaint: Chest Pain Stated Complaint: cp Time Seen by Provider: 09/06/21 23:15 PFS ED PFSH: Medical History Depressive disorder Generalized anxiety disorder Major depressive disorder, recurrent severe without psychotic features Psychiatric care Family History Other Diabetes Hypertension Obesity Social History Smoking and tobacco status: never smoked Second hand smoke exposure: No Alcohol intake: never Adopted: No Caregiver/support person: No Lives independently: No Household members: children Current occupational status: employed History of recent travel: No Sexually active: Yes Current gender identity: Female Physical Exam Neuro: NORMA COMA SCALE: document GCS findings [place] coma scale total score: 15 Course Vital Signs: Vital signs: Vital Signs Temperature 96.5 F L 09/06/21 23:16 Pulse Rate 83 09/07/21 03:03 Respiratory Rate 18 09/07/21 03:03 Blood Pressure 132/77 09/07/21 03:03 Pulse Oximetry 97 09/07/21 03:03 MDM - Chest Pain Medical Decision Making Patient has remained chest free during her entire visit. I have re-evaluated patient multiple times. On her final re-evaluation she tells me she still feels good and feels back to normal and would like to go home. I think some of patient's symptoms could be secondary to the energy/caffeine tablet that she took 2 hours prior to symptoms starting. Patient's work-up here is benign. She has a baseline troponin of 6 with a nonsignificant delta. Her initial and repeat EKGs show sinus rhythm without ischemic changes. CXR show some indistinctness that could represent mild pulmonary edema-? Patient clinically does not appear volume overloaded. At this time I recommend she follow-up with her PCP early next week for reevaluation. Strict return to ED precautions verbally given. I have reviewed this documentation by MICHAELLE Jenkins. Cassius Rodrigez MD Emergency Medicine Lab Data : 09/07/21 00:00 09/07/21 00:00 Radiology Impressions Chest X-Ray 09/06/21 23:18
[2021-09-06 23:30] VITALS: BP 149/84; PULSE 72; RESP 18; O2SAT 100
[2021-09-07] VITALS (7 sets, daily range): BP systolic 126–180; BP diastolic 77–104; PULSE 71–83; RESP 18; O2SAT 97–99
[2021-09-07] MEDS: ondansetron 2 mg/ML SDV 2 mL 4 MG IVP (00:08)
[2021-09-07 00:10] LABS: Basophils # 0.1 10^3/uL (0.0-0.1); Basophils % 0.6 %; Eosinophils # 0.3 10^3/uL (0.0-0.8); Eosinophils % 2.7 %; Hematocrit 41.8 % (37.0-47.0); Hemoglobin 13.5 g/dL (11.5-15.3); Lymphocytes # 2.7 10^3/uL (0.8-4.8); Lymphocytes % 28.7 %; Mean Corpuscular HGB Conc 32.3 g/dL (30.0-36.0); Mean Corpuscular Volume 86.7 fl (81-99); Mean Platelet Volume 11.4 fL (7.4-10.4); Monocytes # 0.8 10^3/uL (0.2-0.9); Monocytes % 8.9 %; Neutrophils # 5.53 10^3/uL (1.8-7.7); Neutrophils % 58.9 %; Nucleated Red Blood Cells % 0 %; Platelet Count 256 10^3/cmm (130-400); Red Blood Count 4.82 10^6/uL (4.1-5.3); Red Cell Distribution Width 15.7 % (12.1-15.1); White Blood Count 9.4 10^3/uL (4.0-10.0)
[2021-09-07 00:39] LABS: Alanine Aminotransferase 46 U/L (0-33); Albumin Level 4.7 g/dL (3.5-5.2); Alkaline Phosphatase 80 IU/L (35-105); Aspartate Amino Transferase 35 U/L (0-32); Blood Urea Nitrogen 15 mg/dL (6-20); Calcium 9.9 mg/dL (8.5-10.5); Carbon Dioxide 25 mmol/L (22-29); Chloride 104 mmol/L (98-107); Globulin 3.1 g/dL (1.3-4.6); Glomerular Filtration Rate 91.8 mL/min (90-130); Glucose 79 mg/dL (65-115); Osmolality Calculated 288 mOsm/kg (285-295); Sodium 139 mmol/L (136-145); Total Bilirubin 0.3 mg/dL (0.15-1.2); Total Protein 7.8 g/dL (6.6-8.7); Troponin(5th) Baseline 6 ng/L (0-10)
--- NOTE | 2021-09-07 01:18 | ECG_ITS ---
[facility] Test Date: 2021-09-07 Pat Name: Fransisco Sharif Department: Room: Gender: Female Relations Specialist: : 1980 Requested By: Tatyana Rodrigez Order Number: [id number] Lucy MD: Pritesh Rey M.D. Measurements Intervals Nichols Rate: 77 P: 65 MS: 147 QRS: 70 QRSD: 79 T: 63 QT: 406 QTc: 462 Interpretive Statements SINUS RHYTHM Compared to ECG 09/06/2021 22:13:04 No significant changes Electronically Signed On 09-07-2021 20:13:03 CDT by Pritesh Rey M.D. [id number]
[2021-09-07] MEDS: metoprolol tartrate 1 mg/1 mL SDV 5 mL 2.5 MG IVP (02:06)
[2021-09-07 02:26] LABS: Troponin 5 2HR 7.48 ng/L (0-10)
[2021-09-07 02:31] LABS: Troponin 5 2HR Delta 1.48 ABS# (0-10)
== END 2021-09-07 02:55 | disposition home or self-care (01) ==
PROVIDERS: Emergency Provider Physician Assistant; PCP Physician Assistant
DX: R07.89 Other chest pain (principal)
CPT/HCPCS: 71045; 80053; 84484; 85025; 93005; 96374; 96375; 99284; J2405; J3490

== ENCOUNTER 2022-03-13 15:17 | Outpatient (CLI) | payer OTHER, SELFPAY ==
--- NOTE | 2022-03-13 15:26 | CT_ITS ---
WS: [id number] CT HEAD TECHNIQUE: Noncontrast CT of the head obtained from the skullbase to the vertex. CLINICAL INFORMATION: BILATERAL HEADACHES COMPARISON: None. DLP: 1010.[address] scans at [facility] use at least one of these dose optimization techniques: automated e xposure control; mA and/or kV adjustment per patient size (includes targeted exams where dose is matc hed to clinical indication); or iterative reconstruction. FINDINGS: No evidence of intracranial hemorrhage or mass effect. Ventricular system and basal cisterns are patrick nt. No extra-axial fluid collections. No evidence of mass or mass effect. Normal corral-white differen tiation. Paranasal sinuses and mastoid air cells are well aerated. .Normal visualized soft tissues. CT/CT head wo con* [id number] IMPRESSION: 1. No evidence of intracranial hemorrhage or mass effect. 2. Normal corral-white differentiation. 3. No acute intracranial findings.
== END 2022-03-13 15:18 | disposition home or self-care (01) ==
PROVIDERS: PCP Family Medicine; Visit Provider Physician Assistant
DX: R51.9 Headache, unspecified (principal)
CPT/HCPCS: 70450

== ENCOUNTER → 2022-07-30 15:24 | Outpatient (BNVA) | payer OTHER, SELFPAY | PROVIDERS: PCP Family Medicine; Visit Provider Family Medicine | DX: R10.9 Unspecified abdominal pain (principal) | CPT/HCPCS: 81000 ==

== ENCOUNTER 2022-10-20 07:13 | Emergency (ER) | payer OTHER, SELFPAY ==
[2022-10-20 07:23] VITALS: BP 135/91; PULSE 82; RESP 18; O2SAT 100
--- NOTE | 2022-10-20 07:37 | XRR_ITS ---
PROCEDURE INFORMATION: Exam: XR Right Hip Exam date and time: 10/20/2022 7:59 AM Age: 42 years old Clinical indication: Hip pain; Right hip; Additional info: Right hip pain TECHNIQUE: Imaging protocol: Radiologic exam of the right hip. Views: 1 view hip with pelvis when performed. COMPARISON: CT abdomen pelvis w con* [id number] 08/05/2020 5:43 AM FINDINGS: Bones/joints: Mild degenerative arthritis right hip. Periarticular sclerosis with medial joint space narrowing. No fracture or dislocation. Increased vertical inclination of the right acetabulum. Soft tissues: Unremarkable. XR/XR hip RT 2-3V wo/w pel* [id number] IMPRESSION: Degenerative arthritis right hip with joint space narrowing.
--- NOTE | 2022-10-20 07:38 | ED_ITS ---
HPI - Extremity Problem General: Chief complaint: Extremity Problem,Nontraumatic Stated complaint: right hip/knee pains Time Seen by Provider: 10/20/22 07:18 History of Present Illness: Patient is a 42-year-old female who comes to the ED with acute on chronic right hip pain. Patient says for over a year and a half she has been dealing with right hip bursitis and has had multiple localized steroid injections by her PCP to treat her bursitis. Over the last 24 hours her right hip pain has progressed and gotten worse. 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 Pain rated an 8 out of 10. Today she noticed she was having some popping pain in her right right hip. Pain radiates down the outside of her thigh to her knee. Denies any fall or any other trauma to cause pain. Denies any fevers, bladder or bowel symptoms. Associated symptoms: Deny chest pain, fever(s) or rash Review of Systems Const: Denies: fever(s), chills or fatigue Eyes: Denies: change in vision or eye discomfort ENMT: Denies: throat pain, odynophagia, nasal discharge or nasal congestion Card: Denies: chest pain, palpitations, edema, swelling of feet/ankles, dyspnea on exertion or orthopnea Resp: Denies: dyspnea, productive cough or non-productive cough GI: Denies: abdominal pain, nausea, vomiting, diarrhea, constipation or hematochezia : Denies: flank pain, dysuria or hematuria Musc: Reports: extremity pain (Right hip pain); Denies: neck pain, back pain or extremity swelling Skin/Breast: Denies: rash or new lesions Neuro: Denies: headache(s), numbness in extremities or weakness in extremities PFSH ED PFSH: Medical History Generalized anxiety disorder Major depressive disorder, recurrent severe without psychotic features Surgical History History of 2 sections History of bilateral tubal ligation History of cholecystectomy Family History Other Diabetes Hypertension Obesity Psychiatric illness Denies family history of CAD (coronary artery disease) Family history of premature coronary artery disease Cancer Stroke Social History Smoking and tobacco status: never smoked Second hand smoke exposure: No Alcohol intake: never Substance/Drug Use: never Adopted: No Caregiver/support person: No Lives independently: No Household members: spouse and children Marital status: Number of children: 2 Current occupational status: employed 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[employer] Sexually active: Yes Do you think of yourself as: Straight/Heterosexual Current gender identity: Female Female Reproductive History: Date of last menstrual period: 09/30/22 Physical Exam Const: COMMON NORMALS: no acute distress, patient oriented x3, healthy appearing and alert GENERAL APPEARANCE: cooperative HENMT: COMMON NORMALS: normocephalic HEAD & SCALP: normocephalic MOUTH: Normal oral and palatal mucosa present THROAT: posterior oropharynx normal and uvula midline Neck/C-Spine: COMMON NORMALS: supple GENERAL: Yes normal visual inspection Resp: COMMON NORMALS: normal respiratory effort, No retractions, No use of accessory muscles and clear to auscultation bilaterally AUSCULTATION: clear to auscultation bilaterally Cardio: COMMON NORMALS: regular rate, regular rhythm, S1 normal heart sound present, S2 normal heart sound present, No gallops present (Cardio), No clicks present (Cardio), No murmurs present (Cardio) and Peripheral pulses 2+ throughout RATE: regular rate RHYTHM: regular rhythm HEART SOUNDS: S1 normal heart sound present and S2 normal heart sound present PERIPHERAL PULSES: Peripheral pulses 2+ throughout GI: COMMON NORMALS: Normal to inspection, nondistended, normoactive bowel sounds present, Soft to palpation, non-tender and no masses PALPATION: Yes Soft to palpation : COMMON NORMALS: Yes no CVA tenderness BLADDER/KIDNEY EXAM: Yes no CVA tenderness Back/Pelvis: COMMON NORMALS: no CVA tenderness Extremity: NARRATIVE EXTREMITY EXAM: Right hip?patient has localized trochanteric tenderness. Neurovascular intact distally. Neuro: COMMON NORMALS: patient oriented x3 SENSORIUM/ORIENTATION: Yes alert GAIT: Yes Normal gait present Skin: GENERAL SKIN EXAM: dry skin Course Vital Signs: Vital signs: Vital Signs Pulse Rate 82 10/20/22 07:23 Respiratory Rate 18 10/20/22 07:23 Blood Pressure 135/91 10/20/22 07:23 Pulse Oximetry 100 10/20/22 07:23 Oxygen Delivery Me thod Room Air 10/20/22 07:23 MDM - Extremity (Nontraumatic) Medical Decision Making Patient is a 42-year-old female who comes to the ED with acute on chronic right hip pain. Patient says for over a year and a half she has been dealing with right hip bursitis and has had multiple localized steroid injections by her PCP to treat her bursitis. Over the last 24 hours her right hip pain has progressed and gotten worse. 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 Pain rated an 8 out of 10. Today she noticed she was having some popping pain in her right right hip. Pain radiates down the outside of her thigh to her knee. Denies any fall or any other trauma to cause pain. Denies any fevers, bladder or bowel symptoms. Vitals are stable. Patient has some right hip localized trochanteric tenderness. Neurovascular intact distally. Rest of exam is benign. X-ray right hip shows some mild arthritis but no other acute findings. Patient given IM Toradol and Decadron here in the ED. She is diagnosed with right hip bursitis and discharged home with a prescription for ibuprofen 800 mg and a Medrol Dosepak. Return ED precautions given. Follow-up with PCP in the next week for reevaluation. Patient understood and agreed with plan. Lab Data I reviewed the patient's lab results. Radiology Impressions Hip/Pelvis X-Ray 10/20/22 07:37 IMPRESSION: Degenerative arthritis right hip with joint space narrowing. Discharge Plan Discharge Patient Disposition: Home Clinical Impression: Bursitis of hip, right Qualifiers: Hip bursitis location: trochanteric bursitis Qualified Code(s): M70.61 - Trochanteric bursitis, right hip Condition: Stable Prescriptions: New ibuprofen 800 mg tablet 800 mg PO Q8H PRN (Reason: pain) Qty: 30 0RF Medrol ([place]) 4 mg tablets,dose pack See Rx Instructions .ROUTE .COMPLEX Qty: 21 0RF Rx Instructions: orally per package directions No Action zolpidem [Ambien] 5 mg tablet 5 mg PO .HS Qty: 30 2RF duloxetine [Cymbalta] 60 mg capsule,delayed release(DR/EC) 120 mg PO DAILY Qty: 60 2RF escitalopram oxalate [Lexapro] 20 mg tablet 20 mg PO DAILY Qty: 30 2RF propranolol 20 mg tablet 20 mg PO ONCE Qty: 30 2RF topiramate 50 mg tablet 50 mg PO BID Qty: 180 0RF diclofenac sodium [Voltaren Arthritis Pain] 1 % gel 4 g topical QID PRN (Reason: pain) Qty: 100 0RF Rx Instructions: apply to bilateral hips phentermine 30 mg capsule 30 mg PO DAILY Qty: 30 0RF Rx Instructions: must administer 2 hours after breakfast Discharge Orders: Discharge ED (Routine); Ordered 10/20/22 Ordered By: Manolo Storm Referrals: Jocelynn Alegre MD [Primary Care Provider] - Discharge Diet: Regular Discharge Activity: Increase activity as tolerated Patient Instructions: Hip Bursitis (ED) Activity Restrictions/Additional Instructions: Follow-up with medical provider as directed in the next 5 to 7 days for reevaluation. Take medications as prescribed. Return to the ER or your medical provider if condition worsens. Please read and understand discharge instructions. Thank you for choosing [facility] for your healthcare needs today. Please realize this is an emergency room and that we are providing you with a medical screening exam and this may not be complete and all inclusive of all the testing and or work up that you may need to determine your ailment or severity of your illness. It is very important that you follow up as instructed or that you return to the Emergency Department should you have concerns or if your condition changes or worsens in any way. Coding Level of Care Code ED Manager [employer] for Iftikhar Marr
[2022-10-20] MEDS: ketorolac 60 mg/2 mL INJ IM (07:53)
[2022-10-20] MEDS: dexamethasone 10 mg/mL INJ IM (07:53)
[2022-10-20 08:33] VITALS: BP 135/91; PULSE 82; RESP 18; O2SAT 100
== END 2022-10-20 08:35 | disposition home or self-care (01) ==
PROVIDERS: Emergency Provider Physician Assistant; PCP Family Medicine
DX: M70.61 Trochanteric bursitis, right hip (principal)
CPT/HCPCS: 73502; 96372; 99284; J1100; J1885

== ENCOUNTER 2022-11-09 19:59 | Emergency (ER) | payer OTHER, SELFPAY ==
--- NOTE | 2022-11-09 20:16 | ED_ITS ---
HPI - General Adult General: Chief complaint: Altered Mental Status Stated complaint: anxiety , confusion Time Seen by Provider: 11/09/22 20:16 History of Present Illness: Ms Sharif is a 42-year-old lady with history of anxiety and depression presenting to the emergency department for evaluation of generalized illness. She reports medication change and is worried that this may have caused increased anxiety however she began having headaches, blurry vision intermittently, intermittent episodes of confusion, dizziness, and generalized unwell feeling after using a help aid product indoors. Windows were not open. Overall intensity symptoms is moderate. Course has persisted. No other specific changes in health, exacerbating, or alleviating factors identified. Severity: moderate Associated symptoms: Reports confusion, dyspnea, headache(s), malaise and nausea Review of Systems General: Reports: 10 or more systems reviewed and unremarkable except in HPI and below Const: Reports: malaise Resp: Reports: dyspnea GI: Reports: nausea Neuro: Reports: headache(s) and confusion PFSH ED PFSH: Medical History Generalized anxiety disorder Major depressive disorder, recurrent severe without psychotic features Surgical History History of 2 sections History of bilateral tubal ligation History of cholecystectomy Family History Other Diabetes Hypertension Obesity Psychiatric illness Denies family history of CAD (coronary artery disease) Family history of premature coronary artery disease Cancer Stroke Social History Smoking and tobacco status: never smoked Second hand smoke exposure: No Alcohol intake: never Substance/Drug Use: never Adopted: No Caregiver/support person: No Lives independently: No Household members: spouse and children Marital status: Number of children: 2 Current occupational status: employed 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[employer] Sexually active: Yes Do you think of yourself as: Straight/Heterosexual Current gender identity: Female Physical Exam Const: COMMON NORMALS: alert GENERAL APPEARANCE: cooperative and well developed HENMT: COMMON NORMALS: normocephalic and atraumatic HEAD & SCALP: normocephalic and atraumatic Eye: COMMON NORMALS: conjunctivae normal CONJUNCTIVA: Yes conjunctivae normal SCLERA: sclerae normal Neck/C-Spine: COMMON NORMALS: supple GENERAL: Yes trachea midline Resp: COMMON NORMALS: clear to auscultation bilaterally EFFORT & INSPECTION: Yes able to speak in complete sentences AUSCULTATION: clear to auscultation bilaterally Cardio: COMMON NORMALS: regular rhythm RATE: tachycardic RHYTHM: regular rhythm GI: COMMON NORMALS: Soft to palpation PALPATION: Yes Soft to palpation and No Tenderness to palpation present (GI) Extremity: GENERAL: Yes normal exam except as noted and No edema Neuro: COMMON NORMALS: moves all extremities SENSORIUM/ORIENTATION: Yes alert and No Orientation impaired Psych: MOOD & AFFECT: Yes anxious and Yes tearful Course Vital Signs: Vital signs: Vital Signs Temperature 98.8 F 11/09/22 20:17 Pulse Rate 94 11/09/22 23:10 Respiratory Rate 18 11/09/22 23:10 Blood Pressure 120/77 11/09/22 23:10 Pulse Oximetry 99 11/09/22 23:10 Oxygen Delivery Me thod Room Air 11/09/22 21:52 [facility] - General Adult Medical Decision Making 42-year-old lady presenting with concern over possible confusion, cleaning substance inhalation, anxiety. Exam as above. No focal neurologic deficits. Labs notable for leukocytosis of unclear etiology, normal hemoglobin and platelet count. No evidence of restricted oxygenation on ABG. Metabolic panel with hypokalemia, mild transaminitis again noted. Head CT and chest x-ray unremarkable. No evidence of abnormality on right upper quadrant ultrasound to explain transaminitis/elevated bilirubin. Patient improved with analgesia, anxiolysis. Also administered IV fluids and potassium replenishment. Offered admission which the patient declined. Most likely etiology of symptoms is unclear. The results of ED evaluation were discussed with the patient including prescriptions and/or symptomatic cares (if applicable) including appropriate and responsible use, followup plan, and return precautions. The patient verbalized understanding and felt safe for discharge. Medical Records I reviewed the patient's medical records. Lab Data I reviewed the patient's lab results. 11/09/22 20:50 11/09/22 20:50 Radiology Impressions Liver Ultrasound 11/09/22 21:27 IMPRESSION: 1. Negative for cholelithiasis or cholecystitis. 2. Small right pleural effusion. Chest X-Ray 11/09/22 21:35 IMPRESSION: No acute findings. Head CT 11/09/22 21:53 IMPRESSION: No acute intracranial abnormality. Laboratory Results WBC 16.9 10^3/uL (4.0-10.0) H 11/09/22 20:50 RBC 4.23 10^6/uL (4.1-5.3) 11/09/22 20:50 Hgb 12.6 g/dL (11.5-15.3) 11/09/22 20:50 Hct 38.2 % (37.0-47.0) 11/09/22 20:50 MCV 90.3 fl (81-99) 11/09/22 20:50 MCH 29.8 pg (28.0-34.0) 11/09/22 20:50 MCHC 33.0 g/dL (30.0-36.0) 11/09/22 20:50 RDW 12.5 % (12.1-15.1) 11/09/22 20:50 Plt Count 296 10^3/cmm (130-400) 11/09/22 20:50 MPV 10.6 fL (7.4-10.4) H 11/09/22 20:50 Neut % (Auto) 72.4 % 11/09/22 20:50 Lymph % (Auto) 16.2 % 11/09/22 20:50 [place] % (Auto) 10.2 % 11/09/22 20:50 Eos % (Auto) 0.3 % 11/09/22 20:50 Baso % (Auto) 0.5 % 11/09/22 20:50 Neut # (Auto) 12.27 10^3/uL (1.8-7.7) H 11/09/22 20:50 Lymph # (Auto) 2.7 10^3/uL (0.8-4.8) 11/09/22 20:50 [place] # (Auto) 1.7 10^3/uL (0.2-0.9) H 11/09/22 20:50 Eos # (Auto) 0.1 10^3/uL (0.0-0.8) 11/09/22 20:50 Baso # (Auto) 0.1 10^3/uL (0.0-0.1) 11/09/22 20:50 Nucleated RBC % (auto) 0 % 11/09/22 20:50 Nucleated RBCs # 0.0 /100WBC 11/09/22 20:50 Specimen Type Arterial 11/09/22 20:36 Sample Site Radial, left 11/09/22 20:36 ABG pH 7.47 (7.35-7.45) H 11/09/22 20:36 ABG pCO2 29.4 mmHg (35-45) L 11/09/22 20:36 ABG pO2 97.1 mmHg (80.0-100.0) 11/09/22 20:36 ABG HCO3 21.4 mmol/L (22-26) L 11/09/22 20:36 ABG Base Excess -1.4 mmol/L (-2.0-2.0) 11/09/22 20:36 Martínez Test Pos 11/09/22 20:36 Hematocrit 37.3 % (37-47) 11/09/22 20:36 Hgb O2 Saturation 97.1 % (95-100) 11/09/22 20:36 Carboxyhemoglobin 1.2 %THgb (0.4-20.1) 11/09/22 20:36 Methemoglobin 0.8 % (0.4-1.5) 11/09/22 20:36 Total Hemoglobin 12.2 g/dL (12-16) 11/09/22 20:36 O2 Delivery Device Room air 11/09/22 20:36 Gardening Instructor ID [email or web address] 11/09/22 20:36 Sodium 143 mmol/L (136-145) 11/09/22 20:50 Potassium 3.0 mmol/L (3.5-5.1) L 11/09/22 20:50 Chloride 107 mmol/L (98-107) 11/09/22 20:50 Carbon Dioxide 23 mmol/L (22-29) 11/09/22 20:50 Anion Gap 16.0 (5-19) 11/09/22 20:50 BUN 16 mg/dL (6-20) 11/09/22 20:50 Creatinine 0.7 mg/dL (0.5-0.9) 11/09/22 20:50 GFR Calculation 91.3 mL/min (90-130) 11/09/22 20:50 Glucose 108 mg/dL (65-115) 11/09/22 20:50 Calculated Osmolality 298 mOsm/kg (285-295) H 11/09/22 20:50 Lactic Acid 1.5 mmol/L (0.5-2.2) 11/09/22 20:50 Calcium 9.4 mg/dL (8.5-10.5) 11/09/22 20:50 Total Bilirubin 1.4 mg/dL (0.15-1.2) H 11/09/22 20:50 AST 50 U/L (0-32) H 11/09/22 20:50 ALT 41 U/L (0-33) H 11/09/22 20:50 Alkaline Phosphatase 80 U/L (35-105) 11/09/22 20:50 Total Protein 7.6 g/dL (6.6-8.7) 11/09/22 20:50 Albumin 4.6 g/dL (3.5-5.2) 11/09/22 20:50 Globulin 3.0 g/dL (1.3-4.6) 11/09/22 20:50 TSH 0.66 uIU/mL (0.27-4.20) 11/09/22 20:50 HCG, Qual Negative (Negative) 11/09/22 20:50 Discharge Plan Discharge Patient Disposition: Home Clinical Impression: Generalized anxiety disorder, Hypokalemia, Malaise and fatigue, Leukocytosis, Abnormal transaminases, Serum total bilirubin elevated Condition: Stable Prescriptions: No Action zolpidem [Ambien] 5 mg tablet 5 mg PO .HS Qty: 30 2RF propranolol 20 mg tablet 20 mg PO ONCE Qty: 30 2RF topiramate 50 mg tablet 50 mg PO BID Qty: 180 0RF diclofenac sodium [Voltaren Arthritis Pain] 1 % gel 4 g topical QID PRN (Reason: pain) Qty: 100 0RF Rx Instructions: apply to bilateral hips phentermine 30 mg capsule 30 mg PO DAILY Qty: 30 0RF Rx Instructions: must administer 2 hours after breakfast bupropion HCl [Wellbutrin XL] 150 mg tablet extended release 24 hr 150 mg PO QAM Qty: 30 1RF duloxetine [Cymbalta] 60 mg capsule,delayed release(DR/EC) 120 mg PO DAILY Qty: 60 2RF escitalopram oxalate [Lexapro] 20 mg tablet 20 mg PO DAILY Qty: 30 2RF ibuprofen 800 mg tablet 800 mg PO Q8H PRN (Reason: pain) Qty: 30 0RF Discharge Orders: Discharge ED (Routine); Ordered 11/09/22 Ordered By: Cassius Rodrigez Referrals: Jocelynn Alegre MD [Primary Care Provider] - Discharge Diet: Usual diet Discharge Activity: Increase activity as tolerated Patient Instructions: Hypokalemia (ED), Leukocytosis (ED), Altered Mental Status (ED) Activity Restrictions/Additional Instructions: Thank you for visiting the emergency department. You were seen and evaluated for generalized illness and mental status changes. The exact cause your sy mptoms is unclear however may be related to recent medication changes from your psychiatric care provider. I recommend ensuring that you stay hydrated and rest. I would continue your medication regimen until you can discuss further with either your primary psychiatric care provider or other psychiatric care provider. Please also follow-up with your primary care provider. Return to the emergency department for worsening symptoms, thoughts of harming yourself or others, or anything else that you are concerned about and feel needs emergency department evaluation. Stand Alone Forms: Work/School Release Coding Level of Care Code ED Signal Operator Technical for Iftikhar Marr
[2022-11-09 20:17] VITALS: BP 148/99; PULSE 114; RESP 17; TEMP 37.1; O2SAT 99; BMI 27.4
[2022-11-09 20:22] VITALS: PULSE 111; RESP 22; O2SAT 99
[2022-11-09 20:47] LABS: ABG PCO2 29.4 mmHg (35-45); ABG PH Result 7.47 (7.35-7.45); Arterial Blood Gas Hematocrit 37.3 % (37-47); Base Excess ABG -1.4 mmol/L (-2.0-2.0); Blood Gas Allen Test Pos; Blood Gas Sample Site Radial, left; Blood Gas Sample Type Arterial; Carboxyhemoglobin 1.2 %THgb (0.4-20.1); HCO3 ABG 21.4 mmol/L (22-26); HGB O2 Sat 97.1 % (95-100); Methemoglobin 0.8 % (0.4-1.5); Oxygen Device ROOM AIR; PO2 ABG 97.1 mmHg (80.0-100.0); Total Hemoglobin 12.2 g/dL (12-16)
[2022-11-09] MEDS: lactated ringers 1,000 ML 999 ML IV (20:58)
[2022-11-09 21:00] LABS: Basophils # 0.1 10^3/uL (0.0-0.1); Basophils % 0.5 %; Eosinophils # 0.1 10^3/uL (0.0-0.8); Eosinophils % 0.3 %; Hematocrit 38.2 % (37.0-47.0); Hemoglobin 12.6 g/dL (11.5-15.3); Lymphocytes # 2.7 10^3/uL (0.8-4.8); Lymphocytes % 16.2 %; Mean Corpuscular Hemoglobin 29.8 pg (28.0-34.0); Mean Corpuscular Volume 90.3 fl (81-99); Mean Platelet Volume 10.6 fL (7.4-10.4); Monocytes # 1.7 10^3/uL (0.2-0.9); Monocytes % 10.2 %; Neutrophils # 12.27 10^3/uL (1.8-7.7); Neutrophils % 72.4 %; Nucleated Red Blood Cells % 0 %; Platelet Count 296 10^3/cmm (130-400); Red Blood Count 4.23 10^6/uL (4.1-5.3); Red Cell Distribution Width 12.5 % (12.1-15.1); White Blood Count 16.9 10^3/uL (4.0-10.0)
[2022-11-09 21:10] LABS: HCG, Serum Qual Negative (Negative)
[2022-11-09 21:13] LABS: Lactic Sepsis W/Reflex 1.5 mmol/L (0.5-2.2)
[2022-11-09 21:23] LABS: Alanine Aminotransferase 41 U/L (0-33); Albumin Level 4.6 g/dL (3.5-5.2); Alkaline Phosphatase 80 U/L (35-105); Aspartate Amino Transferase 50 U/L (0-32); Blood Urea Nitrogen 16 mg/dL (6-20); Calcium 9.4 mg/dL (8.5-10.5); Carbon Dioxide 23 mmol/L (22-29); Chloride 107 mmol/L (98-107); Creatinine Clr Calc Pharmacy 104.9229; Glomerular Filtration Rate 91.3 mL/min (90-130); Glucose 108 mg/dL (65-115); Osmolality Calculated 298 mOsm/kg (285-295); Sodium 143 mmol/L (136-145); Thyroid Stimulating Hormone 0.66 uIU/mL (0.27-4.20); Total Bilirubin 1.4 mg/dL (0.15-1.2); Total Protein 7.6 g/dL (6.6-8.7)
--- NOTE | 2022-11-09 21:27 | USR_ITS ---
PROCEDURE INFORMATION: Exam: US Abdomen, Limited; Right Upper Quadrant Exam date and time: 11/09/2022 9:41 PM Age: 42 years old Clinical indication: Other: Malaise; Prior surgery; Surgery date: 6+ months; Surgery type: Cholecystectomy; Additional info: Generalized illness, elevated tbili/transaminases TECHNIQUE: Imaging protocol: Real time ultrasound of the abdomen with image documentation. Limited exam focused on the right upper quadrant. COMPARISON: CT abdomen pelvis w con* [id number] 08/05/2020 5:43 AM FINDINGS: Pleural spaces: Small right pleural effusion. Liver: Normal. No masses. Gallbladder: Normal. No gallstones. There is no gallbladder wall thickening. Biliary ducts: Normal. No stones. No dilation. Pancreas: Visualized pancreas is unremarkable. Right kidney: Normal. No mass. No hydronephrosis. US/US liver [id number] IMPRESSION: 1. Negative for cholelithiasis or cholecystitis. 2. Small right pleural effusion.
[2022-11-09] MEDS: ketorolac 30 mg/mL INJ 15 MG IVP (21:35)
--- NOTE | 2022-11-09 21:35 | XRR_ITS ---
PROCEDURE INFORMATION: Exam: XR Chest Exam date and time: 11/09/2022 9:45 PM Age: 42 years old Clinical indication: Shortness of breath; Additional info: SOB TECHNIQUE: Imaging protocol: Radiologic exam of the chest. Views: 1 view. COMPARISON: CR XR chest 1V portable [id number] 09/06/2021 10:36 PM FINDINGS: Lungs: Unremarkable. No consolidation. Pleural spaces: Unremarkable. No pleural effusion. No pneumothorax. Heart/Mediastinum: Unremarkable. No cardiomegaly. Bones/joints: Unremarkable. XR/XR chest 1V portable [id number] IMPRESSION: No acute findings.
[2022-11-09 21:52] VITALS: BP 126/86; PULSE 86; RESP 18; O2SAT 100
--- NOTE | 2022-11-09 21:53 | CTR_ITS ---
PROCEDURE INFORMATION: Exam: CT Head Without Contrast Exam date and time: 11/09/2022 10:23 PM Age: 42 years old Clinical indication: Altered mental status/memory loss; Additional info: Confusion TECHNIQUE: Imaging protocol: Computed tomography of the head without contrast. Radiation optimization: All CT scans at this facility use at least one of these dose optimization techniques: automated exposure control; mA and/or kV adjustment per patient size (includes targeted exams where dose is matched to clinical indication); or iterative reconstruction. REPORTING DATA: Count of CT and Cardiac NM exams in prior 12 months: This patient has received [address] and 0 known cardiac nuclear medicine studies in the 12 months prior to the current study. COMPARISON: CT head wo con* [id number] 03/13/2022 3:43 PM RADIATION DOSE METRICS: Total DLP (mGy-cm): 1147.64 FINDINGS: Brain: Normal. No hemorrhage. Unremarkable white matter. No mass effect. Cerebral ventricles: No ventriculomegaly. Paranasal sinuses: Visualized sinuses are unremarkable. No fluid levels. Mastoid air cells: Visualized mastoid air cells are well aerated. Bones/joints: Unremarkable. No acute fracture. Soft tissues: Unremarkable. CT/CT head wo con* [id number] IMPRESSION: No acute intracranial abnormality.
--- NOTE | 2022-11-09 22:12 | PC.NURSE ---
to room. pt publication manager light requesting to use bathroom. pt escorted to bathroom and given cup for sample.
--- NOTE | 2022-11-09 22:16 | PC.NURSE ---
pt did not give urine sample. states she has diarrhea.
[2022-11-09] MEDS: potassium chloride oral liq 20 mEq/15 mL UDC 40 MEQ PO (22:44)
[2022-11-09 23:10] VITALS: BP 120/77; PULSE 94; RESP 18; O2SAT 99
== END 2022-11-09 23:17 | disposition home or self-care (01) ==
PROVIDERS: Emergency Provider Emergency Medicine; PCP Family Medicine
DX: F41.1 Generalized anxiety disorder (principal); R53.81 Other malaise; R53.83 Other fatigue; E87.6 Hypokalemia; D72.829 Elevated white blood cell count, unspecified; R74.01 Elevation of levels of liver transaminase levels; R94.5 Abnormal results of liver function studies
CPT/HCPCS: 36600; 70450; 71045; 76705; 80053; 82805; 83605; 84443; 84703; 85025; 96361; 96374; 99285; J1885; J7120

== ENCOUNTER → 2022-11-22 08:31 | Outpatient (BNVA) | payer OTHER, SELFPAY | PROVIDERS: PCP Family Medicine; Visit Provider Family Medicine | DX: N39.0 Urinary tract infection, site not specified (principal) | CPT/HCPCS: 81000 ==

== ENCOUNTER 2023-03-04 00:58 | Emergency (ER) | payer OTHER, SELFPAY ==
[2023-03-04 01:10] VITALS: BP 121/92; PULSE 81; RESP 16; TEMP 36.9; O2SAT 100; BMI 27.4
--- NOTE | 2023-03-04 01:39 | ED_ITS ---
HPI - General Adult General: Chief complaint: General Medical Stated complaint: Low Blood Pressure\Light Headed Time Seen by Provider: 03/04/23 01:12 History of Present Illness: Patient presents to the ER with complaints of being lightheaded dizzy right having low blood pressure at home. Patient states has been having 1-2 heavy irregular periods monthly for some time due to possibly being perimenopausal. Patient does say she has appoint with her PCP tomorrow but after talking to some of her friends she decided to come in tonight to be further evaluated. Patient has not passed out. Patient denies any pain. Review of Systems General: Reports: 10 or more systems reviewed and unremarkable except in HPI and below PFSH ED PFSH: Medical History Generalized anxiety disorder Major depressive disorder, recurrent severe without psychotic features Surgical History History of 2 sections History of bilateral tubal ligation History of cholecystectomy Family History Other Diabetes Hypertension Obesity Psychiatric illness Denies family history of CAD (coronary artery disease) Family history of premature coronary artery disease Cancer Stroke Social History Smoking and tobacco status: never smoked Second hand smoke exposure: No Alcohol intake: never Substance/Drug Use: never Adopted: No Caregiver/support person: No Lives independently: No Household members: spouse and children Marital status: Number of children: 2 Current occupational status: employed 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[employer] Sexually active: Yes Do you think of yourself as: Straight/Heterosexual Current gender identity: Female Female Reproductive History: Date of last menstrual period: 02/28/23 Physical Exam Const: COMMON NORMALS: no acute distress, average body habitus, patient oriented x3, no limitations, healthy appearing, alert and well nourished HENMT: COMMON NORMALS: normocephalic, atraumatic, hearing grossly normal bilaterally, external ears normal, Normal external nose present and moist oral mucous membranes HEAD & SCALP: normocephalic and atraumatic NOSE: Normal external nose present EXTERNAL EAR: Yes external ears normal Neck/C-Spine: COMMON NORMALS: full ROM, no lymphadenopathy, supple, no meningeal signs, no JVD and Thyroid normal THYROID: Thyroid normal Chest: COMMONS NORMALS: normal inspection of the chest and normal palpation of entire chest wall Resp: COMMON NORMALS: normal respiratory effort, No retractions, No use of accessory muscles and clear to auscultation bilaterally AUSCULTATION: clear to auscultation bilaterally Cardio: COMMON NORMALS: no JVD, regular rate, regular rhythm, S1 normal heart sound present, S2 normal heart sound present, No gallops present (Cardio), No clicks present (Cardio), No murmurs present (Cardio) and No rub (Cardio) RATE: regular rate RHYTHM: regular rhythm HEART SOUNDS: S1 normal heart sound present and S2 normal heart sound present GI: COMMON NORMALS: Normal to inspection, nondistended, normoactive bowel sounds present, Soft to palpation, non-tender, No hepatosplenomegaly present and no masses PALPATION: Yes Soft to palpation and Yes No hepatosplenomegaly present : COMMON NORMALS: Yes no CVA tenderness BLADDER/KIDNEY EXAM: Yes no CVA tenderness Back/Pelvis: COMMON NORMALS: no CVA tenderness Neuro: COMMON NORMALS: patient oriented x3 SENSORIUM/ORIENTATION: Yes alert MENINGEAL SIGNS: Yes no meningeal signs Course Vital Signs: Vital signs: Vital Signs Temperature 98.4 F 03/04/23 01:10 Pulse Rate 81 03/04/23 01:10 Respiratory Rate 16 03/04/23 01:10 Blood Pressure 121/92 03/04/23 01:10 Pulse Oximetry 100 03/04/23 01:10 Oxygen Delivery Me thod Room Air 03/04/23 01:10 [facility] - General Adult Medical Decision Making Patient presents to the ER with complaints of menorrhagia lightheaded dizziness and low blood pressure. Patient already has appointment to follow-up with her family doctor later on today. Lab work was obtained which revealed benign findings. Patient is not anemic. Patient will be discharged home to follow-up with her PCP as previously scheduled. Differential Diagnosis Anemia, hypotension, orthostatic hypotension, Medical Records I reviewed the patient's medical records. Lab Data I reviewed the patient's lab results. 03/04/23 02:17 03/04/23 02:17 Laboratory Results WBC 5.73 10^3/uL (3.29-11.43) 03/04/23 02:17 RBC 4.32 10^6/uL (3.85-5.65) 03/04/23 02:17 Hgb 12.70 g/dL (11.27-16.99) 03/04/23 02:17 Hct 38.9 % (36-47) 03/04/23 02:17 MCV 90.0 fl (85-98) 03/04/23 02:17 MCH 29.4 pg (27-33) 03/04/23 02:17 MCHC 32.6 g/dL (30-55) 03/04/23 02:17 RDW 13.3 % (12.1-15.1) 03/04/23 02:17 Plt Count 248 10^3/cmm (157-399) 03/04/23 02:17 MPV 10.4 fL (7.4-10.4) 03/04/23 02:17 Neut % (Auto) 55.3 % 03/04/23 02:17 Lymph % (Auto) 34.4 % 03/04/23 02:17 [place] % (Auto) 8.2 % 03/04/23 02:17 Eos % (Auto) 1.0 % 03/04/23 02:17 Baso % (Auto) 0.9 % 03/04/23 02:17 Neut # (Auto) 3.17 10^3/uL (1.8-7.7) 03/04/23 02:17 Lymph # (Auto) 2.0 10^3/uL (0.8-4.8) 03/04/23 02:17 [place] # (Auto) 0.5 10^3/uL (0.2-0.9) 03/04/23 02:17 Eos # (Auto) 0.1 10^3/uL (0.0-0.8) 03/04/23 02:17 Baso # (Auto) 0.1 10^3/uL (0.0-0.1) 03/04/23 02:17 Nucleated RBC % (auto) 0 % 03/04/23 02:17 Nucleated RBCs # 0.0 /100WBC 03/04/23 02:17 Sodium 139 mmol/L (136-145) 03/04/23 02:17 Potassium 3.9 mmol/L (3.5-5.1) 03/04/23 02:17 Chloride 106 mmol/L (98-107) 03/04/23 02:17 Carbon Dioxide 24 mmol/L (22-29) 03/04/23 02:17 Anion Gap 12.9 (5-19) 03/04/23 02:17 Creatinine 0.8 mg/dL (0.5-0.9) 03/04/23 02:17 Glucose 85 mg/dL (65-115) 03/04/23 02:17 Calculated Osmolality 290 mOsm/kg (285-295) 03/04/23 02:17 Calcium 9.3 mg/dL (8.5-10.5) 03/04/23 02:17 Total Bilirubin 0.2 mg/dL (0.15-1.2) 03/04/23 02:17 AST 20 U/L (0-32) 03/04/23 02:17 ALT 18 U/L (0-33) 03/04/23 02:17 Alkaline Phosphatase 68 U/L (35-105) 03/04/23 02:17 Total Protein 7.5 g/dL (6.6-8.7) 03/04/23 02:17 Albumin 4.5 g/dL (3.5-5.2) 03/04/23 02:17 Globulin 3.0 g/dL (1.3-4.6) 03/04/23 02:17 EKG Data EKG 1: I personally reviewed and interpreted this EKG as follows: EKG interpretation date: 03/04/23 EKG interpretation time: 01:53 Prior EKG tracings: not available for review Interpretation: EKG showed ventricular rate to 94 bpm, [place] interval 154, QRS duration 90, QTc of 437, sinus rhythm, no ST-T wave changes Discharge Plan Discharge Patient Disposition: Home Clinical Impression: Nonspecific dizziness Menorrhagia Qualifiers: Menorrhagia type: premenopausal Qualified Code(s): N92.4 - Excessive bleeding in the premenopausal period Condition: Stable Prescriptions: No Action propranolol 20 mg tablet 20 mg PO ONCE Qty: 30 2RF diclofenac sodium [Voltaren Arthritis Pain] 1 % gel 4 g topical QID PRN (Reason: pain) Qty: 100 0RF Rx Instructions: apply to bilateral hips duloxetine [Cymbalta] 60 mg capsule,delayed release(DR/EC) 120 mg PO DAILY Qty: 60 2RF escitalopram oxalate [Lexapro] 20 mg tablet 20 mg PO DAILY Qty: 30 2RF bupropion HCl [Wellbutrin XL] 150 mg tablet extended release 24 hr 150 mg PO QAM Qty: 30 2RF topiramate 50 mg tablet 50 mg PO BID Qty: 180 0RF zolpidem [Ambien] 5 mg tablet 5 mg PO .HS Qty: 30 2RF Discharge Orders: Discharge ED (Routine); Ordered 03/04/23 Ordered By: Roney George Referrals: Jocelynn Alegre MD [Primary Care Provider] - Patient Instructions: Dizziness, Menorrhagia (ED) Activity Restrictions/Additional Instructions: Your lab work in ER come back normal. You are not anemic at this moment. Please follow-up with your family practice physician as previously scheduled for further evaluation and treatment. Coding Level of Care Code ED Chemical Weigher for Iftikhar Marr
--- NOTE | 2023-03-04 01:53 | ECG_ITS ---
[facility] Test Date: 2023-03-04 Pat Name: Fransisco Sharif Department: Room: Gender: Female Physician Non Invasive Cardiologist: : 1980 Requested By: Roney George Order Number: [id number] Ayala MD: Pritesh Rey M.D. Measurements Intervals [place] Rate: 94 P: 66 IN: 154 QRS: 71 QRSD: 94 T: 67 QT: 386 QTc: 483 Interpretive Statements SINUS RHYTHM Compared to ECG 09/07/2021 01:23:49 No significant changes Electronically Signed On 03-04-2023 9:46:21 CDT by Pritesh Rey M.D. [id number]
[2023-03-04 02:23] LABS: Basophils # 0.1 10^3/uL (0.0-0.1); Basophils % 0.9 %; Eosinophils # 0.1 10^3/uL (0.0-0.8); Hematocrit 38.9 % (36-47); Lymphocytes % 34.4 %; Mean Corpuscular HGB Conc 32.6 g/dL (30-55); Mean Corpuscular Hemoglobin 29.4 pg (27-33); Mean Platelet Volume 10.4 fL (7.4-10.4); Monocytes # 0.5 10^3/uL (0.2-0.9); Monocytes % 8.2 %; Neutrophils # 3.17 10^3/uL (1.8-7.7); Neutrophils % 55.3 %; Nucleated Red Blood Cells % 0 %; Platelet Count 248 10^3/cmm (157-399); Red Blood Count 4.32 10^6/uL (3.85-5.65); Red Cell Distribution Width 13.3 % (12.1-15.1); White Blood Count 5.73 10^3/uL (3.29-11.43)
[2023-03-04 02:43] VITALS: BP 119/90; PULSE 80; RESP 16; O2SAT 98
[2023-03-04 02:45] LABS: Alanine Aminotransferase 18 U/L (0-33); Albumin Level 4.5 g/dL (3.5-5.2); Alkaline Phosphatase 68 U/L (35-105); Anion Gap 12.9 (5-19); Aspartate Amino Transferase 20 U/L (0-32); Blood Urea Nitrogen 21 mg/dL (6-20); Calcium 9.3 mg/dL (8.5-10.5); Carbon Dioxide 24 mmol/L (22-29); Chloride 106 mmol/L (98-107); Glomerular Filtration Rate 77.9 mL/min (90-130); Glucose 85 mg/dL (65-115); Osmolality Calculated 290 mOsm/kg (285-295); Potassium 3.9 mmol/L (3.5-5.1); Sodium 139 mmol/L (136-145); Total Bilirubin 0.2 mg/dL (0.15-1.2); Total Protein 7.5 g/dL (6.6-8.7)
[2023-03-04 03:05] VITALS: BP 119/90; PULSE 80; RESP 16; TEMP 36.9; O2SAT 98
== END 2023-03-04 03:06 | disposition home or self-care (01) ==
PROVIDERS: Emergency Provider Emergency Medicine; PCP Family Medicine
DX: R42 Dizziness and giddiness (principal); N92.4 Excessive bleeding in the premenopausal period
CPT/HCPCS: 36415; 80053; 85025; 93005; 99284

== ENCOUNTER 2023-04-06 01:08 | Emergency (ER) | payer OTHER, SELFPAY ==
[2023-04-06 01:12] VITALS: BP 124/91; PULSE 100; RESP 16; TEMP 36.6; O2SAT 100; BMI 26.6
[2023-04-06 01:17] VITALS: BP 115/65; PULSE 89; RESP 16; O2SAT 100
--- NOTE | 2023-04-06 01:27 | ED_ITS ---
HPI - Abdominal Pain General: Chief Complaint: Abdominal Pain Stated Complaint: ABD PAIN Time Seen by Provider: 04/06/23 01:14 Source: patient Mode of arrival: ambulatory Limitations: no limitations History of Present Illness: Patient presents to the emergency department today for evaluation treatment of right-sided and periumbilical abdominal pain. Patient states that for the last few days she has felt nauseated but attributed it to receiving her flu immunization during that time. Patient states that she woke up this morning with right-sided periumbilical abdominal pressure which has not improved throughout the day. She notes it has acutely worsened and is made worse with certain range of motion and bending over. She also notes that oral intake seems to make it worse as well. Patient originally thought it was gas but has not had any movement or change in her discomfort. She has been nauseated but had no vomiting. She reports bowel movements only every few days as is normal for her. She has not had fevers. She denies any upper respiratory symptoms associated with this. Patient has had history of abdominal surgeries including section and cholecystectomy. Review of Systems General: Reports: 10 or more systems reviewed and unremarkable except in HPI and below PFSH ED PFSH: Medical History Generalized anxiety disorder Major depressive disorder, recurrent severe without psychotic features Surgical History History of 2 sections History of bilateral tubal ligation History of cholecystectomy Family History Other Diabetes Hypertension Obesity Psychiatric illness Denies family history of CAD (coronary artery disease) Family history of premature coronary artery disease Cancer Stroke Social History Smoking and tobacco/nicotine status: never used tobacco/nicotine Second hand smoke exposure: No Alcohol intake: never Substance/Drug Use: never Adopted: No Caregiver/support person: No Lives independently: No Household members: spouse and children Marital status: Number of children: 2 Current occupational status: employed 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[employer] Sexually active: Yes Do you think of yourself as: Straight/Heterosexual Current gender identity: Female Physical Exam Const: COMMON NORMALS: no acute distress, patient oriented x3 and alert HENMT: COMMON NORMALS: normocephalic, atraumatic, hearing grossly normal bilaterally and moist oral mucous membranes HEAD & SCALP: normocephalic and atraumatic Eye: COMMON NORMALS: Equal, round and reactive pupils present, EOMs intact bilaterally and conjunctivae normal CONJUNCTIVA: Yes conjunctivae normal PUPIL: Yes Equal, round and reactive pupils present Neck/C-Spine: COMMON NORMALS: full ROM and no JVD Lymph: LYMPHATIC: no lymphadenopathy noted Resp: COMMON NORMALS: normal respiratory effort, No retractions, No use of accessory muscles and clear to auscultation bilaterally AUSCULTATION: clear to auscultation bilaterally Cardio: COMMON NORMALS: no JVD, regular rate and regular rhythm RATE: regular rate RHYTHM: regular rhythm GI: OTHER: Diminished bowel sounds throughout. Abdomen is noticeably tender in the periumbilical region. No specific tenderness with in the right lower quadrant, suprapubic, or left lower quadrant region. No specific epigastric tenderness. Abdomen is soft. : COMMON NORMALS: Yes no CVA tenderness BLADDER/KIDNEY EXAM: Yes no CVA tenderness Back/Pelvis: COMMON NORMALS: no CVA tenderness, no thoracic nor lumbar tender ness and thoraco-lumbar ROM normal Extremity: COMMON NORMALS: normal to inspection, full ROM and capillary refill normal Neuro: COMMON NORMALS: patient oriented x3 SENSORIUM/ORIENTATION: Yes alert Psych: COMMON NORMALS: mental status grossly normal, Normal thought process present, cooperative, normal affect and activity/motor behavior normal THOUGHT PROCESS: Normal thought process present Skin: COMMON NORMALS: no rashes or lesions noted and no wounds GENERAL SKIN EXAM: no rashes or lesions noted Course Vital Signs: Vital signs: Vital Signs Temperature 98 F 04/06/23 01:12 Pulse Rate 89 04/06/23 01:17 Respiratory Rate 16 04/06/23 01:17 Blood Pressure 115/65 04/06/23 01:17 Pulse Oximetry 100 04/06/23 01:17 Oxygen Delivery Me thod Room Air 04/06/23 01:17 MDM - Abdominal Pain Medical Decision Making Physical examination revealed tenderness on palpation in the periumbilical region without rigidity or guarding. Lab work showed no acute concerns though the patient's GFR was noticeably decreased. Patient indicated she has been working the last 4 days here in the hospital and admits to decreased oral intake. Patient was provided fluids here in the ER. Patient admits she also takes several medications for mental health and deals with constipation. Since she had no acute abdominal concerns, we obtained a basic KUB to evaluate for any abnormalities warranting a CT scan. Patient has a large gas bubble in the transverse colon and a large amount of stool retained in the descending colon. No signs of impaction in the rectum on x-ray however. Discussed with patient this finding of significant stool accumulation and gas entrapment in the transverse colon. I explained that I do believe this is the cause of her pain as her work-up is otherwise unremarkable. We discussed options for treatment. Patient does not like the taste of MiraLAX and we discussed GoLytely or lactulose. Patient wishes to proceed with lactulose. Patient is to increase her clear fluid intake for the next few days and continue taking her fiber supplements. We discussed new onset fever, vomiting, or bleeding per rectum needs to be seen and reevaluated here in the emergency department. Patient verbalized understanding and agreement to treatment plan. Differential Diagnosis Likely abdominal pain and constipation; Unlikely acute appendicitis, calculus of kidney, diverticulitis, endometriosis, gastroenteritis, pancreatitis or small bowel obstruction Lab Data 04/06/23 01:18 04/06/23 01:18 Labs/Radiology: Laboratory Results WBC 7.75 10^3/uL (3.29-11.43) 04/06/23 01:18 RBC 4.10 10^6/uL (3.85-5.65) 04/06/23 01:18 Hgb 12.20 g/dL (11.27-16.99) 04/06/23 01:18 Hct 37.9 % (36-47) 04/06/23 01:18 MCV 92.4 fl (85-98) 04/06/23 01:18 MCH 29.8 pg (27-33) 04/06/23 01:18 MCHC 32.2 g/dL (30-55) 04/06/23 01:18 RDW 13.7 % (12.1-15.1) 04/06/23 01:18 Plt Count 286 10^3/cmm (157-399) 04/06/23 01:18 MPV 10.1 fL (7.4-10.4) 04/06/23 01:18 Neut % (Auto) 59.3 % 04/06/23 01:18 Lymph % (Auto) 31.2 % 04/06/23 01:18 [place] % (Auto) 6.8 % 04/06/23 01:18 Eos % (Auto) 1.5 % 04/06/23 01:18 Baso % (Auto) 0.9 % 04/06/23 01:18 Neut # (Auto) 4.59 10^3/uL (1.8-7.7) 04/06/23 01:18 Lymph # (Auto) 2.4 10^3/uL (0.8-4.8) 04/06/23 01:18 [place] # (Auto) 0.5 10^3/uL (0.2-0.9) 04/06/23 01:18 Eos # (Auto) 0.1 10^3/uL (0.0-0.8) 04/06/23 01:18 Baso # (Auto) 0.1 10^3/uL (0.0-0.1) 04/06/23 01:18 Nucleated RBC % (auto) 0 % 04/06/23 01:18 Nucleated RBCs # 0.0 /100WBC 04/06/23 01:18 Sodium 139 mmol/L (136-145) 04/06/23 01:18 Potassium 3.7 mmol/L (3.5-5.1) 04/06/23 01:18 Chloride 106 mmol/L (98-107) 04/06/23 01:18 Carbon Dioxide 24 mmol/L (22-29) 04/06/23 01:18 Anion Gap 12.7 (5-19) 04/06/23 01:18 BUN 14 mg/dL (6-20) 04/06/23 01:18 Creatinine 0.8 mg/dL (0.5-0.9) 04/06/23 01:18 GFR Calculation 77.9 mL/min (90-130) L 04/06/23 01:18 Glucose 68 mg/dL (65-115) 04/06/23 01:18 Calculated Osmolality 287 mOsm/kg (285-295) 04/06/23 01:18 Calcium 9.4 mg/dL (8.5-10.5) 04/06/23 01:18 Total Bilirubin 0.2 mg/dL (0.15-1.2) 04/06/23 01:18 AST 21 U/L (0-32) 04/06/23 01:18 ALT 20 U/L (0-33) 04/06/23 01:18 Alkaline Phosphatase 64 U/L (35-105) 04/06/23 01:18 Total Protein 7.3 g/dL (6.6-8.7) 04/06/23 01:18 Albumin 4.4 g/dL (3.5-5.2) 04/06/23 01:18 Globulin 2.9 g/dL (1.3-4.6) 04/06/23 01:18 Lipase 48 U/L (13-60) 04/06/23 01:18 XR interpretation done by ED provider, pending radiology final review (Second opinion by Dr Morales) Discharge Plan Discharge Patient Disposition: Home Clinical Impression: Constipation Condition: Stable Prescriptions: No Action propranolol 20 mg tablet 20 mg PO ONCE Qty: 30 2RF diclofenac sodium [Voltaren Arthritis Pain] 1 % gel 4 g topical QID PRN (Reason: pain) Qty: 100 0RF Rx Instructions: apply to bilateral hips duloxetine [Cymbalta] 60 mg capsule,delayed release(DR/EC) 120 mg PO DAILY Qty: 60 2RF escitalopram oxalate [Lexapro] 20 mg tablet 20 mg PO DAILY Qty: 30 2RF bupropion HCl [Wellbutrin XL] 150 mg tablet extended release 24 hr 150 mg PO QAM Qty: 30 2RF topiramate 50 mg tablet 50 mg PO BID Qty: 180 0RF zolpidem [Ambien] 5 mg tablet 5 mg PO .HS Qty: 30 2RF Discharge Orders: Discharge ED (Routine); Ordered 04/06/23 Ordered By: Valentina Barker Referrals: Jocelynn Alegre MD [Primary Care Provider] - Discharge Diet: Usual diet Discharge Activity: Increase activity as tolerated Patient Instructions: Constipation - Adult Activity Restrictions/Additional Instructions: Lab work today showed no acute concerns. You are a little dry which is why we provided you some fluids. Abdominal x-ray reveals a significant amount of constipation noted in the descending colon area. Just behind this constipation is a large amount of gas which I believe is the cause of your pain today. It is often difficult to accommodate fluid intake while working. As you have been working the last several days I believe you have become dry which has worsened your issues with constipation. We are providing you a dose of lactulose to take at home. I encourage you to increase your clear fluid intake for the next few days in addition to continuing your fiber supplements. You should notice improvement of your overall discomfort and nausea once the stool and gas have passed. If for any reason you develop fever, vomiting, or have any bloody stools you need to be seen and reevaluated. Coding Level of Care Code ED Stock Or Delivery Clerk for Iftikhar Marr
[2023-04-06 01:31] LABS: Basophils # 0.1 10^3/uL (0.0-0.1); Basophils % 0.9 %; Eosinophils # 0.1 10^3/uL (0.0-0.8); Eosinophils % 1.5 %; Hematocrit 37.9 % (36-47); Lymphocytes # 2.4 10^3/uL (0.8-4.8); Lymphocytes % 31.2 %; Mean Corpuscular HGB Conc 32.2 g/dL (30-55); Mean Corpuscular Hemoglobin 29.8 pg (27-33); Mean Corpuscular Volume 92.4 fl (85-98); Mean Platelet Volume 10.1 fL (7.4-10.4); Monocytes # 0.5 10^3/uL (0.2-0.9); Monocytes % 6.8 %; Neutrophils # 4.59 10^3/uL (1.8-7.7); Neutrophils % 59.3 %; Nucleated Red Blood Cells % 0 %; Platelet Count 286 10^3/cmm (157-399); Red Cell Distribution Width 13.7 % (12.1-15.1); White Blood Count 7.75 10^3/uL (3.29-11.43)
[2023-04-06] MEDS: ketorolac 30 mg/mL INJ IVP (01:43)
[2023-04-06 01:53] LABS: Alanine Aminotransferase 20 U/L (0-33); Albumin Level 4.4 g/dL (3.5-5.2); Alkaline Phosphatase 64 U/L (35-105); Aspartate Amino Transferase 21 U/L (0-32); Blood Urea Nitrogen 14 mg/dL (6-20); Calcium 9.4 mg/dL (8.5-10.5); Carbon Dioxide 24 mmol/L (22-29); Chloride 106 mmol/L (98-107); Globulin 2.9 g/dL (1.3-4.6); Glomerular Filtration Rate 77.9 mL/min (90-130); Glucose 68 mg/dL (65-115); Lipase 48 U/L (13-60); Osmolality Calculated 287 mOsm/kg (285-295); Sodium 139 mmol/L (136-145); Total Bilirubin 0.2 mg/dL (0.15-1.2); Total Protein 7.3 g/dL (6.6-8.7)
[2023-04-06 01:55] LABS: Anion Gap 12.7 (5-19); Potassium 3.7 mmol/L (3.5-5.1)
--- NOTE | 2023-04-06 01:55 | XRR_ITS ---
PROCEDURE INFORMATION: Exam: XR Abdomen Exam date and time: 04/06/2023 2:00 AM Age: 43 years old Clinical indication: Abdominal pain; Prior surgery; Surgery date: 6+ months; Surgery type: Gb. Tubal. Csection; Patient HX: Periumbilical pain; Additional info: Pain, periumbilical/right abdominal pain. No wbc, lfts or lipase TECHNIQUE: Imaging protocol: Radiologic exam of the abdomen. Views: Frontal supine view of the abdomen. 1 View. COMPARISON: CT abdomen pelvis w con* [id number] 08/05/2020 5:43 AM FINDINGS: Gastrointestinal tract: There is moderate stool noted in the colon. Bones/joints: There is degenerative change noted in the bones with a mild levoconvex curvature of the lumbar spine. XR/XR KUB [id number] IMPRESSION: Constipation.
[2023-04-06] MEDS: sodium chloride 0.9% 1,000 ML 999 ML IV (02:14)
--- NOTE | 2023-04-06 03:10 | PC.NURSE ---
Pt sent home with Lactulose per PA order.
[2023-04-06 03:11] VITALS: BP 131/92; PULSE 77; RESP 16; O2SAT 100
== END 2023-04-06 03:09 | disposition home or self-care (01) ==
PROVIDERS: Emergency Provider Physician Assistant; PCP Family Medicine
DX: K59.00 Constipation, unspecified (principal)
CPT/HCPCS: 74018; 80053; 83690; 85025; 96361; 96374; 99284; J1885; J7030

== ENCOUNTER → 2023-04-11 09:07 | Outpatient (BNVA) | payer OTHER, SELFPAY | PROVIDERS: PCP Family Medicine; Visit Provider Family Medicine | DX: N92.1 Excessive and frequent menstruation with irregular cycle (principal); M70.61 Trochanteric bursitis, right hip; Z79.899 Other long term (current) drug therapy | CPT/HCPCS: 82670; 83001; 83002; 84144; 84443; 85025 ==

== ENCOUNTER → 2023-05-27 16:02 | Outpatient (BNVA) | payer OTHER, SELFPAY | PROVIDERS: PCP Family Medicine; Visit Provider Family Medicine | DX: N92.1 Excessive and frequent menstruation with irregular cycle (principal) | CPT/HCPCS: 85025 ==

== ENCOUNTER 2023-08-21 11:24 | Outpatient (RCR) | payer OTHER, SELFPAY | END 2023-08-21 23:59 | disposition home or self-care (01) | LOC: SPT 11:24 | PROVIDERS: PCP Family Medicine; Visit Provider Family Medicine | DX: M25.551 Pain in right hip (principal); M25.552 Pain in left hip | CPT/HCPCS: 97110; 97161 ==

== ENCOUNTER 2023-08-22 06:00 | Outpatient (RCR) | payer OTHER, SELFPAY | END 2023-09-21 23:59 | disposition home or self-care (01) | LOC: SPT 06:00 | PROVIDERS: PCP Family Medicine; Visit Provider Family Medicine | DX: M25.551 Pain in right hip (principal); M25.552 Pain in left hip | CPT/HCPCS: 97110 ==

== ENCOUNTER 2023-09-22 06:00 | Outpatient (RCR) | payer OTHER, SELFPAY | END 2023-10-21 23:59 | disposition home or self-care (01) | LOC: SPT 06:00 | PROVIDERS: PCP Family Medicine; Visit Provider Family Medicine | DX: M25.551 Pain in right hip (principal); M25.552 Pain in left hip | CPT/HCPCS: 97110 ==

== ENCOUNTER → 2023-10-01 10:57 | Outpatient (BNVA) | payer OTHER, SELFPAY | PROVIDERS: PCP Family Medicine; Referring Provider Family Medicine; Visit Provider Specialist | DX: M70.61 Trochanteric bursitis, right hip | CPT/HCPCS: 73502 ==

== ENCOUNTER 2023-12-10 19:42 | Emergency (ER) | payer SELFPAY ==
[2023-12-10 19:46] VITALS: BP 135/78; PULSE 83; RESP 16; TEMP 36.6; O2SAT 97
--- NOTE | 2023-12-10 19:53 | ED_ITS ---
HPI - Extremity Problem General: Chief complaint: Extremity Problem,Nontraumatic Stated complaint: Right leg pain into hip Time Seen by Provider: 12/10/23 19:45 Source: patient Mode of arrival: ambulatory Limitations: no limitations History of Present Illness: Patient is a 43-year-old female presents to ED today with a complaint of right hip and leg pain. Patient states she has longstanding history of right hip bursitis. She has seen her primary care provider for this many times, has underwent physical therapy, and has underwent corticosteroid injection by orthopedics/Dr. Gabriel. She states with her new job she is on her feet more than usual and feels like she may have exacerbated this. Patient states pain starts in the right side of her back and radiates down into her right buttock and then down her right leg all the way to my toes . She describes the sensation as burning and tingling. She has not noticed any swelling to the extremity. She has not had any color or temperature changes. She is not complaining of any saddle anesthesia or bowel or bladder dysfunction. MD Complaint: extremity pain and joint pain Onset (ago): day(s) Pain Consistency: constant Location: right and lower extremity Quality: burning and other (tingling) Radiation: distal Relieving factors: nothing Exacerbating factors: weight bearing Associated symptoms: Reports no associated symptoms; Deny chest pain, fever(s) or rash Review of Systems Const: Denies: fever(s), chills, body aches, fatigue or malaise Card: Denies: chest pain Resp: Denies: dyspnea GI: Denies: abdominal pain : Denies: flank pain, dysuria or hematuria Musc: Reports: back pain, extremity pain and joint pain (R hip); Denies: neck pain, extremity swelling, joint redness, joint warmth, joint stiffness or muscle cramps Skin/Breast: Denies: rash Neuro: Reports: sensory changes and difficulty walking; Denies: headache(s) or weakness in extremities PFSH ED PFSH: Medical History Major depressive disorder, recurrent severe without psychotic features Generalized anxiety disorder Surgical History History of bilateral tubal ligation History of 2 sections History of cholecystectomy Family History Other Diabetes Hypertension Obesity Psychiatric illness Denies family history of CAD (coronary artery disease) Family history of premature coronary artery disease Cancer Stroke Social History Smoking and tobacco/nicotine status: never used tobacco/nicotine Second hand smoke exposure: No Alcohol intake: never Substance/Drug Use: never Adopted: No Caregiver/support person: No Lives independently: No Household members: spouse and children Marital status: Number of children: 2 Current occupational status: employed 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[employer] Sexually active: Yes Do you think of yourself as: Straight/Heterosexual Current gender identity: Female Physical Exam Const: COMMON NORMALS: no acute distress, no limitations, alert and well nourished GENERAL APPEARANCE: cooperative Neck/C-Spine: COMMON NORMALS: full ROM and no meningeal signs GENERAL: Yes normal visual inspection CERVICAL SPINE: Yes cervical ROM normal, No pain with cervical ROM and No Cervical spine tenderness GI: COMMON NORMALS: Normal to inspection, nondistended, normoactive bowel sounds present, Soft to palpation and non-tender PALPATION: Yes Soft to palpation : COMMON NORMALS: Yes no CVA tenderness BLADDER/KIDNEY EXAM: Yes no CVA tenderness Back/Pelvis: COMMON NORMALS: no CVA tenderness, thoracic and lumbar spine normal to inspection, no thoracic nor lumbar tenderness, thoraco-lumbar ROM normal and straight leg raise negative bilaterally LUMBAR SPINE/LOWER BACK: No lumbar spinal tenderness and Yes straight leg raise negative bilaterally PELVIS: Yes buttock abnormal Buttock abnormal laterality: right Right buttock abnormal details: tenderness and Yes sciatic notch tenderness on the right SACROILIAC JOINTS: Yes SI joint(s) abnormal SI joint details: tender to palpation (right) SACRUM: no tenderness COCCYX: no tenderness Extremity: COMMON NORMALS: normal to inspection, full ROM, capillary refill normal, no joint enlargement, no clubbing, cyanosis or edema, no calf tenderness and no pedal edema GENERAL: Yes normal exam except as noted Neuro: COMMON NORMALS: moves all extremities, no focal motor deficits, no sensory deficits noted and gait normal SENSORIUM/ORIENTATION: Yes alert MENINGEAL SIGNS: Yes no meningeal signs Skin: COMMON NORMALS: no rashes or lesions noted GENERAL SKIN EXAM: no rashes or lesions noted Course Vital Signs: Vital signs: Vital Signs Temperature 97.8 F 12/10/23 19:46 Pulse Rate 84 12/10/23 20:23 Respiratory Rate 16 12/10/23 20:23 Blood Pressure 134/93 12/10/23 20:23 Pulse Oximetry 96 12/10/23 20:23 Oxygen Delivery Me thod Room Air 12/10/23 19:46 MDM - Extremity (Nontraumatic) Medical Decision Making Patient's symptoms today not consistent with her normal bursitis. This sounds more like a right-sided sciatica. Will place her on steroids and NSAIDs. She can follow-up with her primary care provider if symptoms do not seem to be improving. Return to ED precautions given. Medical Records I reviewed the patient's medical records. No radiology studies performed this visit Discharge Plan Discharge Patient Disposition: Home Clinical Impression: Acute right-sided back pain with sciatica Condition: Stable Prescriptions: New prednisone 10 mg tablet 10 mg PO DAILY 7 Days Qty: 27 0RF Rx Instructions: 6 tabs on days 1-2, 5 tabs on days 3, 4 tabs on day 4, 3 tabs on day 5, 2 tabs on day 6, 1 tab on day 7 Continued ibuprofen 800 mg tablet 800 mg PO Q8H PRN (Reason: pain) Qty: 30 0RF No Action diclofenac sodium [Voltaren Arthritis Pain] 1 % gel 4 g topical QID PRN (Reason: pain) Qty: 100 0RF Rx Instructions: apply to bilateral hips zolpidem [Ambien] 5 mg tablet 5 mg PO .HS Qty: 30 2RF desvenlafaxine succinate [Pristiq] 50 mg tablet extended release 24 hr 50 mg PO DAILY Qty: 60 1RF bupropion HCl [Wellbutrin XL] 300 mg tablet extended release 24 hr 300 mg PO QAM Qty: 30 2RF bupropion HCl [Wellbutrin XL] 150 mg tablet extended release 24 hr 150 mg PO QAM Qty: 30 2RF Rx Instructions: Take with Wellbutrin XL 300mg daily. buspirone 7.5 mg tablet 7.5 mg PO BID Qty: 60 2RF propranolol 20 mg tablet 20 mg PO TID PRN (Reason: anxiety) Qty: 90 2RF lidocaine 5 % adhesive patch,medicated 1 patch topical DAILY Qty: 15 0RF Rx Instructions: leave on most painful area for up to 12 hrs Discharge Orders: Discharge ED (Routine); Ordered 12/10/23 Ordered By: Tatyana Rodrigez Referrals: Jocelynn Alegre MD [Primary Care Provider] - Patient Instructions: Sciatica Coding Level of Care Code ED Sock Knitter for Iftikhar Marr
[2023-12-10] MEDS: methylPREDNISolone sod succ 125 mg/2 mL INJ IM (20:08)
[2023-12-10 20:12] VITALS: BP 150/74; PULSE 84; RESP 16; O2SAT 96
[2023-12-10 20:23] VITALS: BP 134/93; PULSE 84; RESP 16; O2SAT 96
== END 2023-12-10 20:25 | disposition home or self-care (01) ==
PROVIDERS: Emergency Provider Physician Assistant; PCP Family Medicine
DX: M54.41 Lumbago with sciatica, right side (principal)
CPT/HCPCS: 96372; 99284; J2919

== ENCOUNTER 2024-03-05 06:00 | Outpatient (CLI) | payer BC, SELFPAY | END 2024-03-05 06:01 | disposition home or self-care (01) | LOC: RAD 03-29 09:56 | PROVIDERS: PCP Family Medicine; Visit Provider Family Medicine | DX: Z11.3 Encounter for screening for infections with a predominantly sexual mode of transmission (principal); Z12.4 Encounter for screening for malignant neoplasm of cervix | CPT/HCPCS: 87491; 87591; 87624 ==

== ENCOUNTER 2024-03-22 21:22 | Emergency (ER) | payer BC, SELFPAY ==
[2024-03-22 21:25] VITALS: BP 143/78; PULSE 112; RESP 16; TEMP 36.8; O2SAT 100; BMI 35.5
[2024-03-22 21:43] VITALS: BP 127/87; PULSE 93; RESP 16; O2SAT 99
--- NOTE | 2024-03-22 22:06 | W.ED.BACK ---
HPI - Back Pain/Injury General: Chief Complaint: Back Pain/Injury Stated Complaint: Lower back pain Time Seen by Provider: 03/22/24 21:23 Source: patient Mode of arrival: ambulatory Limitations: no limitations History of Present Illness: Patient is a 44-year-old female presenting to the emergency department complaining of atraumatic low back pain for the past few days. She states she lifts weights often, and believes she initially injured it during this. 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 She has been taking ibuprofen for pain relief, however states she did not take any today to see how bad her pain was. She has been using heat, no relief from this. She denies any bowel or bladder incontinence, fevers, or other symptoms. She does note that the pain radiates down her right lower extremity, and reports history of pinched nerves in her back before. MD elicited complaint: back pain Onset (ago): day(s) Timing: constant and progressively worsening Severity: severe Location: lumbar spine and right lower back Radiation: right upper leg Exacerbating factors: movement and walking Context: while lifting and bending Associated symptoms: Deny abdominal pain, chills, fever(s), nausea or vomiting Related Data Previous Rx's Medication Instructions Recorded ibuprofen 800 mg tablet 800 mg PO Q8H PRN pain #30 tabs 12/10/23 bupropion HCl 150 mg 24 hr tablet, 150 mg PO QAM #30 tabs 12/15/23 extended release (Wellbutrin XL) duloxetine 60 mg capsule,delayed 120 mg (2 x 60 mg) PO DAILY #60 12/15/23 release (Cymbalta) caps propranolol 20 mg tablet 20 mg PO TID PRN anxiety #90 tabs 12/15/23 zolpidem 5 mg tablet (Ambien) 5 mg PO .HS #30 tabs 12/15/23 bupropion HCl 300 mg 24 hr tablet, 300 mg PO QAM #30 tabs 03/05/24 extended release (Wellbutrin XL) semaglutide (weight loss) 0.25 0.25 mg (0.5 mL) SUBCUT Q7D #2 mL 03/05/24 mg/0.5 mL subcutaneous pen injector ([employer]) metronidazole 500 mg tablet 500 mg PO BID #14 tabs 03/12/24 cyclobenzaprine 10 mg tablet 10 mg PO TID #15 tabs 03/22/24 prednisone 20 mg tablet 60 mg (3 x 20 mg) PO ONCE 5 days 03/23/24 #15 tabs Allergies Allergy/AdvReac Type Severity Reaction Status Date / Time No Known Allergies Allergy Verified 03/22/24 21:29 Review of Systems General: Reports: 10 or more systems reviewed and unremarkable except in HPI and below Const: Denies: fever(s) or chills Card: Denies: chest pain Resp: Denies: dyspnea or productive cough GI: Denies: abdominal pain, nausea, vomiting or diarrhea : Denies: flank pain Musc: Reports: back pain, extremity pain (Right lower extremity) and limited range of motion; Denies: neck pain, extremity swelling, joint pain, joint swelling, joint redness, joint warmth or muscle weakness Skin/Breast: Denies: rash Neuro: Denies: headache(s), numbness in extremities or weakness in extremities PFSH ED PFSH: Medical History Major depressive disorder, recurrent severe without psychotic features Generalized anxiety disorder Surgical History History of bilateral tubal ligation History of 2 sections History of cholecystectomy Family History Other Diabetes Hypertension Obesity Psychiatric illness Denies family history of CAD (coronary artery disease) Family history of premature coronary artery disease Cancer Stroke Social History Smoking and tobacco/nicotine status: never used tobacco/nicotine Second hand smoke exposure: No Alcohol intake: never Substance/Drug Use: never Adopted: No Caregiver/support person: No Lives independently: No Household members: spouse and children Marital status: Number of children: 2 Current occupational status: employed 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[employer] Sexually active: Yes Do you think of yourself as: Straight/Heterosexual Current gender identity: Female Female Reproductive History: Date of last menstrual period: 02/22/24 Physical Exam Const: COMMON NORMALS: patient oriented x3, no limitations, healthy appearing, alert and well nourished OTHER: Does appear uncomfortable at this time HENMT: COMMON NORMALS: normocephalic and atraumatic HEAD & SCALP: normocephalic and atraumatic Neck/C-Spine: COMMON NORMALS: full ROM, supple and no meningeal signs Resp: COMMON NORMALS: normal respiratory effort, No use of accessory muscles and clear to auscultation bilaterally AUSCULTATION: clear to auscultation bilaterally Cardio: COMMON NORMALS: regular rhythm RATE: tachycardic RHYTHM: regular rhythm Back/Pelvis: OTHER: Reproducible tenderness to palpation of the lumbar spine as well as the right paralumbar region with spasming noted. Straight leg raise is positive on the right side. Extremity: COMMON NORMALS: normal to inspection, full ROM, capillary refill normal, no joint enlargement and no clubbing, cyanosis or edema Neuro: COMMON NORMALS: patient oriented x3, moves all extremities, no focal motor deficits and no sensory deficits noted SENSORIUM/ORIENTATION: Yes alert MENINGEAL SIGNS: Yes no meningeal signs Skin: COMMON NORMALS: no rashes or lesions noted GENERAL SKIN EXAM: no rashes or lesions noted Course Vital Signs: Vital signs: Vital Signs Temperature 98.2 F 03/22/24 21:25 Pulse Rate 96 03/22/24 22:50 Respiratory Rate 16 03/22/24 22:50 Blood Pressure 144/91 03/22/24 22:50 Pulse Oximetry 99 03/22/24 22:50 Oxygen Delivery Me thod Room Air 03/22/24 22:50 MDM - Back Pain/Injury Medical Decision Making Patient presented with atraumatic back pain evolving over the past couple days, was acutely worsened yesterday while bending and lifting a heavy bag of cat food. Did appear in quite a bit of pain on physical examination, heart rate elevated likely secondary to the pain. Was initially given Toradol and Norflex, and upon recheck 30 minutes later states that it was worsening and she thinks she needs her back imaged. CT lumbar spine without contrast obtained did show 2 bulging disks, though mild. Patient again recheck after imaging and is now starting to feel better. Will treat with steroids for her disc pathology, also will prescribe muscle relaxers for paralumbar muscle spasms. Is given return precautions and work note delegating tasks for no heavy lifting. She will follow-up with primary care if she continues to have pain, for potential referral to Ortho/spine. Labs Radiology Impressions Lumbar Spine CT 03/22/24 23:09 IMPRESSION: 1. L3-L4 broad-based disc bulge with mild spinal canal and bilateral foraminal narrowing. 2. L4-L5 broad-based disc bulge with mild spinal canal and bilateral foraminal narrowing. All radiology interpretation(s) finalized by discharge Discharge Plan Discharge Patient Disposition: Home Clinical Impression: Bulging lumbar disc Condition: Stable Prescriptions: New cyclobenzaprine 10 mg tablet 10 mg PO TID Qty: 15 0RF prednisone 20 mg tablet 60 mg PO ONCE 5 Days Qty: 15 0RF No Action bupropion HCl [Wellbutrin XL] 150 mg tablet extended release 24 hr 150 mg PO QAM Qty: 30 2RF Rx Instructions: Take with Wellbutrin XL 300mg daily. duloxetine [Cymbalta] 60 mg capsule,delayed release(DR/EC) 120 mg PO DAILY Qty: 60 2RF propranolol 20 mg tablet 20 mg PO TID PRN (Reason: anxiety) Qty: 90 2RF zolpidem [Ambien] 5 mg tablet 5 mg PO .HS Qty: 30 2RF triamcinolone acetonide [Kenalog] 40 mg/mL suspension 40 mg intra-articular ONCE Qty: 1 0RF dexamethasone sodium phosphate 4 mg/mL solution 4 mg intra-articular ONCE Qty: 1 0RF lidocaine (PF) 10 mg/mL (1 %) solution 15 mg intra-articular ONCE Qty: 1.5 0RF ropivacaine (PF) 5 mg/mL (0.5 %) solution 1.5 ml intra-articular ONCE Qty: 1.5 0RF Wegovy 0.25 mg/0.5 mL pen injector 0.25 mg SUBCUT Q7D Qty: 2 0RF Rx Instructions: administer weeks 1 through 4 of therapy bupropion HCl [Wellbutrin XL] 300 mg tablet extended release 24 hr 300 mg PO QAM Qty: 30 2RF metronidazole 500 mg tablet 500 mg PO BID Qty: 14 0RF ibuprofen 800 mg tablet 800 mg PO Q8H PRN (Reason: pain) Qty: 30 0RF Discharge Orders: Discharge ED (Routine); Ordered 03/23/24 Ordered By: Wicho Turner Referrals: Jocelynn Alegre MD [Primary Care Provider] - Discharge Diet: Usual diet Discharge Activity: Increase activity as tolerated Patient Instructions: Degenerative Disc Disease (ED) Activity Restrictions/Additional Instructions: Muscle relaxers as prescribed. Take Tylenol and ibuprofen at home. Follow-up with your primary care provider with any persistence of pain for potential referral to orthopedics. Return with any new or worsening symptoms. Stand Alone Forms: Work/School Release Coding Level of Care Code ED [employer] for [employer]ft[employer]har Marr
[2024-03-22] MEDS: orphenadrine 30 mg/mL Inj 2 mL 60 MG IM (22:46)
[2024-03-22] MEDS: ketorolac 60 mg/2 mL INJ IM (22:47)
[2024-03-22 22:50] VITALS: BP 144/91; PULSE 96; RESP 16; O2SAT 99
--- NOTE | 2024-03-22 23:09 | CTR_ITS ---
PROCEDURE INFORMATION: Exam: CT Lumbar Spine Without Contrast Exam date and time: 03/22/2024 11:16 PM Age: 44 years old Clinical indication: Low back pain; Additional info: Worsening back pain with rle numbness TECHNIQUE: Imaging protocol: Computed tomography of the lumbar spine without contrast. Radiation optimization: All CT scans at this facility use at least one of these dose optimization techniques: automated exposure control; mA and/or kV adjustment per patient size (includes targeted exams where dose is matched to clinical indication); or iterative reconstruction. COMPARISON: CT abdomen pelvis w con* [id number] 08/05/2020 5:43 AM RADIATION DOSE METRICS: Total DLP (mGy-cm): 1263.16 FINDINGS: Bones/joints: See L3-L4 finding. L1-L2: No significant disc bulge or herniation. No severe spinal canal stenosis. No significant neural foraminal narrowing. L2-L3: No significant disc bulge or herniation. No severe spinal canal stenosis. No significant neural foraminal narrowing. L3-L4: L3-L4 broad-based disc bulge with mild spinal canal and bilateral foraminal narrowing. L4-L5: L4-L5 broad-based disc bulge with mild spinal canal and bilateral foraminal narrowing. L5-S1: No significant disc bulge or herniation. No severe spinal canal stenosis. No significant neural foraminal narrowing. Soft tissues: Unremarkable. CT/CT lumbar spine wo con* [id number] IMPRESSION: 1. L3-L4 broad-based disc bulge with mild spinal canal and bilateral foraminal narrowing. 2. L4-L5 broad-based disc bulge with mild spinal canal and bilateral foraminal narrowing.
[2024-03-23 00:15] VITALS: BP 150/83; PULSE 70; O2SAT 97
== END 2024-03-23 00:16 | disposition home or self-care (01) ==
PROVIDERS: Emergency Provider Physician Assistant; PCP Family Medicine
DX: M51.36 Other intervertebral disc degeneration, lumbar region (principal); X50.0XXA Overexertion from strenuous movement or load, initial encounter
CPT/HCPCS: 72131; 96372; 99284; J1885; J2360